=== PATIENT | male | born 1945 | race Hispanic/Latino ===

== ENCOUNTER 2020-08-29 17:41 | Inpatient (IN) | payer OTHER ==
[2020-08-29 19:57] LABS: Absolute Lymphocytes (CBC) 1.3 K/uL (0.7-4.9); Basophils % 0.1 % (0-1.3); Hematocrit 22.9 % (39.6-49.0); Lymphocytes % 14.3 % (15.3-44.8); MPV 9.7 fL (7.6-11.3); RBC Red Blood Cell Count 2.62 M/uL (4.33-5.43)
[2020-08-29 20:07] LABS: Protime INR 1.03
[2020-08-29] MEDS ORDERED: dexAMETHasone 10 MG/ML VIAL ONE (20:09)
[2020-08-29] MEDS ORDERED: LEVALBUTEROL 1.25 MG/3 ML NEB ONE (20:09)
--- NOTE | 2020-08-29 20:11 | RAD REPORT ---
EXAM DESCRIPTION: RAD - Chest Single View - 08/29/2020 8:03 pm CLINICAL HISTORY: shortness of breath Chest pain. COMPARISON: No comparisons FINDINGS: Portable technique limits examination quality. Moderate bilateral pulmonary opacities are present which may indicate pulmonary edema or viral infect ion. The heart is mildly enlarged in size. No displaced fractures.Aortic atherosclerosis. Surgical cl ips are seen upper chest.
[2020-08-29 20:31] LABS: Albumin 3.3 g/dL (3.4-5.0); Bilirubin Direct 0.2 mg/dL (0-0.2); Bilirubin Total 0.7 mg/dL (0.2-1.0); Magnesium 1.9 mg/dL (1.8-2.4); Potassium 4.2 mmol/L (3.5-5.1); Protein, Total 7.7 g/dL (6.4-8.2); Troponin (Emerg Dept Use Only) 0.02 ng/mL (0.0-0.045)
--- NOTE | 2020-08-29 20:32 | EDPHYS ---
Physician Documentation [facility] Name: Wayne Marr Age: 75 yrs Sex: Male : 1945 Arrival Date: 08/29/2020 Time: 17:42 Bed 23 Private MD: ED Physician Jero Tolentino HPI: 08/29 19:14 This 75 yrs old Male presents to ER via Ambulatory with complaints of Cough, jmm Shortness Of Breath. 19:14 The patient or guardian reports cough. Onset: The symptoms/episode began/occurred jmm gradually, 8 day(s) ago. Modifying factors: The symptoms are alleviated by nothing, the symptoms are aggravated by nothing. Associated signs and symptoms: Pertinent positives: fever. Patient states symptoms began approximately 8 days ago after playing golf. Sent by PCP due to abnormal VS> . Historical: - Allergies: 18:33 No Known Allergies; ca1 - PMHx: 18:33 Cataracts; Diabetes - NIDDM; High Cholesterol; Hypertension; ca1 - PSHx: 18:33 prostate surgery; Knee surgery; skin cancer; ca1 - Immunization history:: Pneumococcal vaccine is up to date, Flu vaccine is up to date. - Social history:: Smoking status: Patient/guardian denies using tobacco, the patient reports quitting approximately 20 years ago. ROS: 19:14 Constitutional: Positive for fever. jmm 19:14 Respiratory: Positive for cough, shortness of breath. 19:14 All other systems are negative. Exam: 19:14 Constitutional: This is a well developed, well nourished patient who is awake, alert, jmm and in no acute distress. Head/Face: atraumatic. Eyes: EOMI, no conjunctival erythema appreciated ENT: Moist Mucus Membranes Neck: Trachea midline, Supple Chest/axilla: Normal chest wall appearance and motion. Cardiovascular: Regular rate and rhythm. No edema appreciated Respiratory: Normal respirations, no respiratory distress appreciated Abdomen/GI: Non distended, soft Back: Normal ROM Skin: General appearance color normal MS/ Extremity: Moves all extremities, no obvious deformities appreciated, no edema noted to the lower extremities Neuro: Awake and alert, normal gait Psych: Behavior is normal, Mood is normal, Patient is cooperative and pleasant Vital Signs: 18:27 BP 114 / 55; Pulse 85; Resp 20 S; Temp 98.3(TE); Pulse Ox 87% on R/A; Weight 90.26 kg ca1 (R); Height 5 ft. 6 in. (167.64 cm) (R); Pain 0/10; 19:00 BP 129 / 63; Pulse 86; Resp 20; Pulse Ox 91% on 4 lpm NC; Pain 5/10; rb3 21:30 BP 114 / 62; Pulse 84; Resp 22; Pulse Ox 92% on 4 lpm NC; iw 21:45 Pulse Ox 85% on 4 lpm NC; iw 08/30 03:27 BP 126 / 82 LA Supine (auto/); Pulse 78; Resp 20; Temp 97.6(O); Pulse Ox 89% on 4 lpm ds4 NC; Pain 0/10; 08/29 18:27 Body Mass Index 32.12 (90.26 kg, 167.64 cm) ca1 08/29 21:45 pt stood up to use urinal, Sat dropped to 85% iw MDM: 19:14 Patient medically screened. nona 20:30 Data reviewed: vital signs, nurses notes. Counseling: I had a detailed discussion with nona the patient and/or guardian regarding: the historical points, exam findings, and any diagnostic results supporting the discharge/admit diagnosis, lab results, radiology results, the need for further work-up and treatment in the hospital. 20:30 ED course: I discussed the patient with Juan F Salas whom accepted admission to Dr. nona Banks service. . 08/29 19:15 Order name: Basic Metabolic Panel [facility] 08/29 19:15 Order name: CBC with Diff [facility] 08/29 19:15 Order name: LFT's [facility] 08/29 19:15 Order name: Magnesium [facility] 08/29 19:15 Order name: NT PRO-BNP [facility] 08/29 19:15 Order name: PT-INR [facility] 08/29 19:15 Order name: Troponin (emerg Dept Use Only) [facility] 08/29 19:15 Order name: Procalcitonin; Complete Time: 21:22 [facility] 08/29 19:15 Order name: Lactate [facility] 08/29 19:15 Order name: Blood Culture Adult (2) [facility] 08/29 20:04 Order name: CBC with Automated Diff; Complete Time: 20:05 [facility] 08/29 20:08 Order name: Protime (+INR); Complete Time: 20:14 [facility] 08/29 20:19 Order name: Lactate; Complete Time: 20:43 [facility] 08/29 20:31 Order name: Basic Metabolic Panel; Complete Time: 20:43 [facility] 08/29 20:31 Order name: Liver (Hepatic) Function; Complete Time: 20:43 [facility] 08/29 20:31 Order name: Troponin (Emerg Dept Use Only); Complete Time: 20:43 [facility] 08/29 20:31 Order name: NT PRO-BNP; Complete Time: 20:43 [facility] 08/29 20:31 Order name: Magnesium; Complete Time: 20:43 [facility] 08/29 21:06 Order name: CRP; Complete Time: 21:46 [facility] 08/29 21:28 Order name: COVID-19/FLU A+B; Complete Time: 21:46 [facility] 08/30 05:36 Order name: CBC with Automated Diff [facility] 08/30 05:53 Order name: Basic Metabolic Panel [facility] 08/30 05:53 Order name: Lipid Profile [facility] 08/30 06:26 Order name: C-Reactive Protein [facility] 08/30 06:26 Order name: Iron [facility] 08/30 06:26 Order name: Transferrin Sat/Iron Binding [facility] 08/30 06:26 Order name: Folic Acid, (Folate) [facility] 08/30 06:26 Order name: Vitamin B12 Level [facility] 08/29 19:15 Order name: XRAY Chest (1 view) [facility] 08/29 19:15 Order name: EKG; Complete Time: 19:16 [facility] 08/29 19:15 Order name: Cardiac monitoring; Complete Time: 19:53 [facility] 08/29 19:15 Order name: EKG - Nurse/Tech; Complete Time: 20:10 [facility] 08/29 19:15 Order name: IV Saline Lock; Complete Time: 19:53 [facility] 08/29 19:15 Order name: Labs collected and sent; Complete Time: 19:53 [facility] 08/29 19:15 Order name: O2 Per Protocol; Complete Time: 19:53 [facility] 08/29 19:15 Order name: O2 Sat Monitoring; Complete Time: 19:53 [facility] 08/29 20:12 Order name: RAD; Complete Time: 20:14 [facility] 08/29 21:21 Order name: Abdomen [facility] 08/29 21:28 Order name: CONS Physician Consult [facility] 08/30 11:46 Order name: Glucose, Ancillary Testing [facility] 08/30 18:22 Order name: Glucose, Ancillary Testing [facility] 08/30 20:59 Order name: Glucose, Ancillary Testing [facility] Administered Medications: 19:55 Drug: Xopenex (3) 1.25 mg Route: Inhalation; ca1 20:02 Drug: Decadron - Dexamethasone 10 mg Route: IVP; Site: left forearm; ca1 Disposition: 08/30 07:01 Co-signature as Attending Physician, Jero Tolentino MD I agree with the assessment and kdr plan of care. Disposition: 08/29/20 20:31 Hospitalization ordered by René Mcmanus for Observation. Preliminary diagnosis are Pneumonia, Hypoxia. - Bed requested for Intensive Care Unit. - Status is Observation. dm5 - Condition is Stable. - Problem is new. - Symptoms are unchanged. Signatures: Dispatcher [employer] [facility] Licha Shipman RN RN dm5 Isabel Khan RN RN Jero Tolentino MD MD [facility] Jordan Sam PA PA [facility] Juan F Salas PA PA [id number] Elise Covington RN RN ca1 Corrections: (The following items were deleted from the chart) 08/29 20:44 20:31 Hospitalization Ordered by René Mcmanus MD for Observation. Preliminary dw diagnosis is Pneumonia; Hypoxia. Bed requested for Telemetry/MedSurg (observation). Status is Observation. Condition is Stable. Problem is new. Symptoms are unchanged. [facility] : 21:19 Abdomen Pelvis W Con+CT.RAD.BRZ ordered. [facility] 21: 19:17 Influenza Screen (A \T\ B)+BA.LAB.BRZ ordered. [facility] 08/30 19:54 08/29 20:44 08/29/2020 20:31 Hospitalization Ordered by René Mcmanus MD for dw Observation. Preliminary diagnosis is Pneumonia; Hypoxia. Bed requested for [facility] ER HOLD. Status is Observation. Condition is Stable. Problem is new. Symptoms are unchanged. 08/30 22:37 19:54 08/29/2020 20:31 Hospitalization Ordered by René Mcmanus MD for Observation. dm5 Preliminary diagnosis is Pneumonia; Hypoxia. Bed requested for Intensive Care Unit. Status is Observation. Condition is Stable. Problem is new. Symptoms are unchanged. dw
--- NOTE | 2020-08-29 20:32 | ER ---
Nurse's Notes [facility] Name: Wayne Marr Age: 75 yrs Sex: Male : 1945 Arrival Date: 08/29/2020 Time: 17:42 Bed 23 Private MD: Diagnosis: Pneumonia;Hypoxia Presentation: 08/29 18:27 Chief complaint: Patient's son or daughter states: Son: was playing golf Wednesday, ca1 last week. with the bad foggy weather. Started feeling bad, felt achy, cough, chill. Past few days he had been coughing, checked his O2 sat and it was at 86%. Called his doctor, and when I checked again it was 84%. Denies HX of COPD. Reports SOB with exertion. Coronavirus screen: cough unrelated to allergies, Client presents with at least one sign or symptom that may indicate coronavirus-19. Standard/surgical mask placed on the client. Provider contacted for isolation considerations. Ebola Screen: Patient negative for fever greater than or equal to 101.5 degrees Fahrenheit, and additional compatible Ebola Virus Disease symptoms Patient denies exposure to infectious person. Patient denies travel to an Ebola-affected area in the 21 days before illness onset. No symptoms or risks identified at this time. Initial Sepsis Screen: Does the patient meet any 2 criteria? No. Patient's initial sepsis screen is negative. Does the patient have a suspected source of infection? No. Patient's initial sepsis screen is negative. Risk Assessment: Do you want to hurt yourself or someone else? Patient reports no desire to harm self or others. Onset of symptoms was August 29, 2020. 18:27 Method Of Arrival: Ambulatory ca1 18:27 Acuity: MAURISIO 2 ca1 Triage Assessment: 18:40 Respiratory: the patient has mild shortness of breath. rb3 Historical: - Allergies: 18:33 No Known Allergies; ca1 - PMHx: 18:33 Cataracts; Diabetes - NIDDM; High Cholesterol; Hypertension; ca1 - PSHx: 18:33 prostate surgery; Knee surgery; skin cancer; ca1 - Immunization history:: Pneumococcal vaccine is up to date, Flu vaccine is up to date. - Social history:: Smoking status: Patient/guardian denies using tobacco, the patient reports quitting approximately 20 years ago. Screenin:40 Abuse screen: Denies threats or abuse. Nutritional screening: No deficits noted. rb3 Tuberculosis screening: No symptoms or risk factors identified. Fall Risk None identified. Assessment: 18:40 General: Appears in no apparent distress. comfortable, Behavior is calm, cooperative, rb3 Denies fever. General: Reports chills for. Pain: Complains of pain in bodyaches Pain currently is 5 out of 10 on a pain scale. Pain began last Wednesday08/21/20. Neuro: Level of Consciousness is awake, alert, obeys commands, Oriented to person, place, time, situation. Cardiovascular: Patient's skin is warm and dry. Respiratory: Reports shortness of breath on exertion Airway is patent Respiratory effort is even, unlabored, Respiratory pattern is regular, symmetrical. Respiratory: Reports cough that is productive, white sputum. GI: No signs and/or symptoms were reported involving the gastrointestinal system. : No signs and/or symptoms were reported regarding the genitourinary system. 19:54 Cardiovascular: Reports shortness of breath, Denies chest pain, Rhythm is regular. iw Respiratory: Reports shortness of breath at rest on exertion cough that is productive, Breath sounds are diminished bilaterally. Derm: Skin is intact, is healthy with good turgor. Musculoskeletal: Range of motion: intact in all extremities. 21:20 Reassessment: called lab to check on COVID result, Edwardo reports it was positive, result iw is in [facility] Jordan., PA notified. 21:58 Reassessment: pt finished drinking contrast, unable to contact CT at this time , no iw answer. Vital Signs: 18:27 BP 114 / 55; Pulse 85; Resp 20 S; Temp 98.3(TE); Pulse Ox 87% on R/A; Weight 90.26 kg ca1 (R); Height 5 ft. 6 in. (167.64 cm) (R); Pain 0/10; 19:00 BP 129 / 63; Pulse 86; Resp 20; Pulse Ox 91% on 4 lpm NC; Pain 5/10; rb3 21:30 BP 114 / 62; Pulse 84; Resp 22; Pulse Ox 92% on 4 lpm NC; iw 21:45 Pulse Ox 85% on 4 lpm NC; iw 08/30 03:27 BP 126 / 82 LA Supine (auto/); Pulse 78; Resp 20; Temp 97.6(O); Pulse Ox 89% on 4 lpm ds4 NC; Pain 0/10; 08/29 18:27 Body Mass Index 32.12 (90.26 kg, 167.64 cm) ca1 08/29 21:45 pt stood up to use urinal, Sat dropped to 85% iw ED Course: 17:42 Patient arrived in ED. as 18:32 Triage completed. ca1 18:33 Arm band placed on right wrist. ca1 18:34 Jordan Sam PA is PHCP. m 18:34 Jero Tolentino MD is Attending Physician. jmm 18:40 Patient has correct armband on for positive identification. Bed in low position. Call rb3 light in reach. Side rails up X 1. Pulse ox on. NIBP on. 18:51 Moriah Navarrete, RN is Primary Nurse. rb3 19:52 Initial lab(s) drawn, by nc, sent to lab. Inserted saline lock: 20 gauge in left iw forearm, using aseptic technique. Blood collected. 20:31 René Mcmanus MD is Hospitalizing Provider. [facility] 21:29 No provider procedures requiring assistance completed. Patient admitted, IV remains in iw place. 08/30 06:39 Primary Nurse role handed off by Moriah Navarrete RN Administered Medications: 08/29 19:55 Drug: Xopenex (3) 1.25 mg Route: Inhalation; ca1 20:02 Drug: Decadron - Dexamethasone 10 mg Route: IVP; Site: left forearm; ca1 Outcome: 20:31 Decision to Hospitalize by Provider. [facility] 21:30 Admitted to ER Hold. Please see [facility] for further documentation. iw 21:30 Condition: stable 21:30 Discharge instructions given to patient, Instructed on the need for admit, Demonstrated understanding of instructions. 08/30 22:36 Admitted to ICU accompanied by nurse, room ICU 1, Report called to Annalee Joseph RN called dm5 report to ICU nurse. Annalee took the patient up. 22:37 Patient left the ED. dm5 Signatures: Licha Shipman, RN RN dm5 Jordan Sam PA PA Annette Oconnell Irene, RN RN iw Iván Batres ds4 Romana Curtis eb Elise Covington RN RN ca1 Navarrete, Moriah, RN RN rb3
[2020-08-29 21:28] LABS: SARS-COV-2 RT PCR POSITIVE (NEGATIVE)
[2020-08-29] MEDS: NA CHLORIDE 0.9% 1,000 ML IV SCH (23:35)
[2020-08-29] MEDS ORDERED: ACETAMINOPHEN 325 MG TABLET PO PRN (23:35)
[2020-08-29] MEDS: IVERMECTIN 3 MG TABLET PO ONE (23:35)
--- NOTE | 2020-08-30 02:56 | P.HP ---
Certification for Inpatient Patient admitted to: Inpatient With expected LOS: >2 Midnights Patient will require the following post-hospital care: None Practitioner: I am a practitioner with admitting privileges, knowledge of patient current condition, hospital course, and medical plan of care. Services: Services provided to patient in accordance with Admission requirements found in Title 42 Section 412.3 of the Code of Federal Regulations <Rene Salas - Last Filed: 08/30/20 02:50> Patient History Date of Service: 08/29/20 Reason for admission: COVID pneumonia, hypoxia, anemia, dehydration History of Present Illness: Mr. Marr is a 75 yo M with DM, HLD, and HTN here today for cough since 08/21/20. He reports achiness, chills, and diarrhea as well. He denies fever, nausea, and vomiting. He checked is O2 sat today and it was 86%. Sats on arrival were 87% on room air, now 91% on 4L of O2. He tested positive for COVID in the ER and CXR reveals bilateral pulmonary opacity. Of note, Hgb was 8.0 and he denies history of anemia. He reports dark black stool with diarrhea since the onset of his symptoms. His last colonoscopy was 15 years ago. He is a former smoker and quit in 1991. Na 132, K 4.2, Cl 106, HCO3 18, BUN 35, Cr 1.75, Glu 93. Hb/Hct 8/22.9, WBC 9.3, Glu 169. Home medications list reviewed: Yes - Past Medical/Surgical History Diabetic: Yes -: type 2 diabetes mellitus -: HLd -: HTN -: cataracts -: prostate surgery -: knee surgery -: skin cancer removal - Family History Mother -: Heart disease Father -: Cancer Brother -: Heart disease - Social History Smoking Status: Former smoker Counseled patient to stop smoking for: less than 10 minutes Smoking therapy provided: No Alcohol use: Yes CD- Drugs: No Caffeine use: Yes Place of Residence: Home <Rene Salas - Last Filed: 08/30/20 02:50> Date of Service: 08/29/20 <René Mcmanus - Last Filed: 09/01/20 08:09> Allergies No Known Allergies Allergy (Unverified 11/09/15 16:43) Review of Systems General: Malaise, As per HPI Eyes: Unremarkable ENT: Unremarkable Respiratory: Cough, Shortness of Breath, SOB with Excertion, As per HPI Cardiovascular: Unremarkable Gastrointestinal: Diarrhea, Melena, As per HPI Genitourinary: Unremarkable Musculoskeletal: Unremarkable Integumentary: Unremarkable Neurological: Unremarkable Lymphatics: Unremarkable <SalomeheverjackiRene - Last Filed: 08/30/20 02:50> Physical Examination - Vital Signs Temperature: 98.3 F Blood Pressure: 114/55 Pulse: 85 Respirations: 20 Pulse Ox (%): 87 - Physical Exam General: Alert, In no apparent distress, Oriented x3, Cooperative HEENT: Atraumatic, Normocephalic, PERRLA, Mucous membr. moist/pink, EOMI Neck: Supple, 2+ carotid pulse no bruit, JVD not distended, No Thyromegaly, No LAD Respiratory: Normal air movement, Rhonchi/gurgles Cardiovascular: No edema, Normal pulses, Regular rate/rhythm, Normal S1 S2, No gallops, No rubs, No murmurs Capillary refill: <2 Seconds Gastrointestinal: Normal bowel sounds, Soft and benign, Non-distended, No ascites, No tenderness, No masses, No rebound, No guarding Musculoskeletal: No clubbing, No swelling, No contractures, No erythema, No tenderness, No warmth Integumentary: No rashes, No breakdown, No significant lesion, No tenderness/swelling, No erythema, No warmth, No cyanosis Neurological: Normal speech, Sensation intact, Cranial nerves 3-12 intact, Nor mal affect Lymphatics: No axilla or inguinal lymphadenopathy Rectal: Normal, No tenderness, Other (negative guiac) - Studies Laboratory Data (last 24 hrs) 08/29/20 19:45: PT 12.1, INR 1.03 08/29/20 19:45: WBC 9.30, Hgb 8.0 L, Hct 22.9 L, Plt Count 169 08/29/20 19:45: Sodium 132 L, Potassium 4.2, BUN 35 H, Creatinine 1.75 H, Glucose 93, Magnesium 1.9, Total Bilirubin 0.7, AST 94 H, ALT 60, Alkaline Phosphatase 56 <Rene Salas - Last Filed: 08/30/20 02:50> Assessment and Plan - Problems (Diagnosis) (1) Pneumonia due to COVID-19 virus Onset Date: ~08/30/20 Current Visit: Yes Status: Acute Plan: -Vitamin D, Zinc, Vitamin C - Solumedrol - DVT prophylaxis - Ivermectin 18 mg - pepcid - melatonin - pulmonology and respiratory therapy consulted for oxygen titration (2) COVID-19 Onset Date: ~08/30/20 Current Visit: Yes Status: Acute Plan: see above for COVID pneumonia plan (3) Dehydration Onset Date: ~08/30/20 Current Visit: Yes Status: Acute Plan: -HCO3 of 18, patient with diarrhea since onset of symptoms - replete fluids and recheck BMP in the AM (4) Anemia Onset Date: ~08/30/20 Current Visit: Yes Status: Acute Plan: -Hgb of 8 today. Patient denies history of anemia. Reports dark black stools since onset of COVID symptoms. No colonoscopy in 15 years. Former smoker. - BRET completed and sample sent to lab for development - CT abdomen did not reveal any findings - Iron studies ordered Qualifiers: Anemia type: unspecified type Qualified Code(s): D64.9 - Anemia, unspecified - Plan DM, HLD, and HTN all stable at this time. Continue to monitor. Discharge Plan: Home Plan to discharge in: Greater than 2 days - Advance Directives Does patient have a Living Will: No Does patient have a Durable POA for Healthcare: No - Code Status/Comfort Care Code Status Assessed: Yes Code Status: Full Code Critical Care: No Time Spent Managing Pts Care (In Minutes): 70 <Rene Salas - Last Filed: 08/30/20 02:50> Date of Service: 08/30/20 Agree with findings as above. Patient was diagnosed with COVID-19 pneumonia. Patient on high-flow oxygen at this time. Continue with aggressive measurements. Pulmonary consultation pending. <René Mcmanus - Last Filed: 09/01/20 08:09>
[2020-08-30 05:27] LABS: Absolute Lymphocytes (CBC) 0.6 K/uL (0.7-4.9); Basophils % 0.1 % (0-1.3); Hematocrit 33.7 % (39.6-49.0); Lymphocytes % 8.3 % (15.3-44.8); MPV 9.7 fL (7.6-11.3); RBC Red Blood Cell Count 3.82 M/uL (4.33-5.43)
[2020-08-30 05:53] LABS: Potassium 4.4 mmol/L (3.5-5.1)
[2020-08-30 06:25] LABS: C-Reactive Protein 96.6 mg/L (<3.00); Ferritin 2270.1 ng/mL (26-388); Folic Acid, (Folate) 18.1 ng/mL (3.1-17.5)
--- NOTE | 2020-08-30 07:55 | EKG ---
Test Date: 2020-08-29 Test Time: 20:04:42 Foam Gun Operator: JARRETT MEASUREMENT RESULTS: Intervals: Rate: 87 MN: 148 QRSD: 92 QT: 364 QTc: 438 [place]: P: 21 MN: 148 QRS: 47 T: 25 INTERPRETIVE STATEMENTS: Normal sinus rhythm Low voltage QRS Borderline ECG No previous ECG available for comparison Electronically Signed On 08-30-20 07:49:55 PRESS MAINTAINER by Robb Perkins
[2020-08-30] MEDS: FAMOTIDINE 20 MG/2 ML VIAL IV SCH ×2 (09:32→21:28)
[2020-08-30] MEDS: ZINC SULFATE 220 MG CAP PO SCH (09:32)
[2020-08-30] MEDS: ENOXAPARIN 100 MG/ML SYR SQ SCH ×2 (09:32→21:28)
[2020-08-30] MEDS: METHYLPREDNISOLONE 40 MG INJ IV SCH ×2 (09:32→21:28)
[2020-08-30] MEDS: ASCORBIC ACID 500 MG TABLET PO SCH ×4 (09:32→21:28)
[2020-08-30] MEDS: VITAMIN D 5,000 UNIT CAP PO SCH (09:32)
[2020-08-30] MEDS: NA CHLORIDE 0.9% 1,000 ML IV SCH ×2 (09:33→12:55)
[2020-08-30] MEDS: IVERMECTIN 3 MG TABLET PO ONE (09:34)
[2020-08-30] MEDS ORDERED: ENOXAPARIN 100 MG/ML SYR SQ ONE ×2 (09:43→21:15)
[2020-08-30] MEDS ORDERED: ASCORBIC ACID 500 MG TABLET ONE ×3 (09:43→21:14)
[2020-08-30] MEDS ORDERED: METHYLPREDNISOLONE 40 MG INJ ONE ×2 (09:43→21:14)
[2020-08-30] MEDS ORDERED: NA CHLORIDE 0.9% 1,000 ML ONE (09:43)
[2020-08-30] MEDS ORDERED: ZINC SULFATE 220 MG CAP ONE (09:43)
[2020-08-30] MEDS ORDERED: FAMOTIDINE 20 MG/2 ML VIAL IV ONE ×2 (10:21→21:15)
--- NOTE | 2020-08-30 11:07 | RAD REPORT ---
EXAM DESCRIPTION: CT - Abdomen Pelvis Wo Contrast - 08/30/2020 12:43 am CLINICAL HISTORY: The patient is 75 years old and is Male; anemia with melena TECHNIQUE: Axial computed tomography images of the abdomen and pelvis without intravenous contrast. Sagittal and coronal reformatted images were created and reviewed. This CT exam was performed usi ng one or more of the following dose reduction techniques: automated exposure control, adjustment o f the mA and/or kV according to patient size, and/or use of iterative reconstruction technique. COMPARISON: No relevant prior studies available. FINDINGS: LUNG BASES: Patchy groundglass opacities are present within the visualized lung bases. PLEURAL SPACE: Trace bilateral pleural effusions are present. ABDOMEN: LIVER: The liver is fatty and enlarged. GALLBLADDER AND BILE DUCTS: No calcified stones. No ductal dilation. PANCREAS: The pancreas is atrophic with fatty infiltration. No ductal dilation. SPLEEN: Unremarkable. ADRENALS: Unremarkable. No mass. KIDNEYS AND URETERS: Bilateral nonspecific perinephric stranding is noted. There is no obstructi ng renal or ureteral calculus. STOMACH AND BOWEL: The stomach is decompressed. The proximal small bowel is also decompressed. O ral contrast is noted within the mid to distal small bowel. Oral contrast and liquid stool is noted t hroughout the colon. There is no mucosal thickening or evidence of bowel obstruction. Scattered colon ic diverticula are noted without surrounding inflammation. PELVIS: APPENDIX: The appendix is normal in caliber without surrounding inflammation. BLADDER: The bladder is significantly distended. No stones. REPRODUCTIVE: The prostate is enlarged. ABDOMEN and PELVIS: INTRAPERITONEAL SPACE: Unremarkable. No free air. No significant fluid collection. BONES/JOINTS: There are degenerative changes of the spine. SOFT TISSUES: The soft tissues are normal. VASCULATURE: Atherosclerosis of the vasculature is noted. No abdominal aortic aneurysm. LYMPH NODES: Unremarkable. No enlarged lymph nodes. IMPRESSION: 1. Liquid stool throughout the colon. Findings can be seen with a clinical history of diarrhea. No bowel obstruction. 2. Enlarged heterogeneous prostate. Correlation with PSA is recommended. 3. Moderately distended bladder. 4. Commonly reported imaging features of (COVID-19 or viral) pneumonia are present. Other processes such as influenza pneumonia and organizing pneumonia, as can be seen with drug toxicity and connecti ve tissue disease, can cause a similar imaging pattern. [id number] Electronically signed by: Chapis Diaz MD 08/30/2020 12:31 AM MECHATRONICS ENGINEER Due to temporary technical issues with the PACS/Fluency reporting system, reports are being signed by the in house radiologist without review as a courtesy to ensure prompt reporting. The interpreting r adiologist is fully responsible for the content of the report.
--- NOTE | 2020-08-30 12:42 | P.CNS ---
Date of Consult: 08/30/20 Reason for Consult: Respiratory failure Chief Complaint: COVID pneumonia, hypoxia, anemia, dehydration History of Present Illness: Patient is 75 years of age multiple medical problems admitted with cough since July 21 chills diarrhea nausea vomiting fever low saturation reported some diarrhea stools had a colonoscopy done He is currently on high-flow oxygen 65% FiO2 Allergies No Known Allergies Allergy (Unverified 11/09/15 16:43) Home Medications: Amlodipine [Norvasc*] 1 tab PO DAILY 08/30/20 Atorvastatin Calcium [Lipitor*] 1 tab PO BEDTIME 08/30/20 Carvedilol [Coreg] 12.5 mg PO BID 08/30/20 Lisinopril [Zestril] 5 mg PO DAILY 08/30/20 Tamsulosin HCl 1 tab PO DAILY 08/30/20 - Past Medical/Surgical History Diabetic: Yes -: type 2 diabetes mellitus -: HLd -: HTN -: cataracts -: prostate surgery -: knee surgery -: skin cancer removal - Family History Mother Medical History: Heart disease Father Medical History: Cancer Brother Medical History: Heart disease - Social History Alcohol use: Yes CD- Drugs: No Caffeine use: Yes Place of Residence: Home Review of Systems General: Weakness Respiratory: Shortness of Breath Physical Examination Temp Pulse Resp BP Pulse Ox 97.6 F 78 20 126/82 89 L 08/30/20 03:50 08/30/20 03:50 08/30/20 03:50 08/30/20 03:50 08/30/20 03:50 Laboratory Data (last 24 hrs) 08/29/20 19:45: PT 12.1, INR 1.03 08/29/20 19:45: WBC 9.30, Hgb 8.0 L, Hct 22.9 L, Plt Count 169 08/29/20 19:45: Sodium 132 L, Potassium 4.2, BUN 35 H, Creatinine 1.75 H, Glucose 93, Magnesium 1.9, Total Bilirubin 0.7, AST 94 H, ALT 60, Alkaline Phosphatase 56 - Problems (1) Pneumonia due to COVID-19 virus Onset Date: ~08/30/20 Current Visit: Yes Status: Acute Plan: Patient is 75 years of age admitted with pneumonia due to heath virus chest x- rays consistent with heath virus labs reviewed mildly anemic continue with present treatment no change hemoglobin stable continue to wean done on oxygen hemodynamically stable
[2020-08-30] MEDS ORDERED: INSULIN -REGULAR HUMAN 50 UNIT/0.5 ML ML ONE (12:46)
[2020-08-30] MEDS ORDERED: GLUCAGON 1 MG/VIAL IM PRN (21:27)
[2020-08-30] MEDS ORDERED: D50W 25 GM/50 ML SYRINGE IV PRN (21:27)
[2020-08-30] MEDS: MELATONIN 5 MG TABLET PO SCH (22:52)
[2020-08-30] MEDS: INSULIN -REGULAR HUMAN 50 UNIT/0.5 ML ML SQ SCH (22:52)
[2020-08-31 06:11] LABS: C-Reactive Protein 74.3 mg/L (<3.00); Potassium 4.3 mmol/L (3.5-5.1)
[2020-08-31] MEDS ORDERED: INSULIN -REGULAR HUMAN 50 UNIT/0.5 ML ML SQ SCH (07:30)
[2020-08-31] MEDS: INSULIN -REGULAR HUMAN 50 UNIT/0.5 ML ML SQ SCH ×4 (07:30→21:00)
[2020-08-31] MEDS: ENOXAPARIN 100 MG/ML SYR SQ SCH ×2 (08:53→20:45)
[2020-08-31] MEDS: FAMOTIDINE 20 MG/2 ML VIAL IV SCH ×2 (08:54→20:46)
[2020-08-31] MEDS: VITAMIN D 5,000 UNIT CAP PO SCH (08:55)
[2020-08-31] MEDS: METHYLPREDNISOLONE 40 MG INJ IV SCH ×2 (08:55→20:46)
[2020-08-31] MEDS: ASCORBIC ACID 500 MG TABLET PO SCH ×3 (08:55→20:45)
[2020-08-31] MEDS: ZINC SULFATE 220 MG CAP PO SCH (08:56)
[2020-08-31] MEDS ORDERED: IVERMECTIN 3 MG TABLET PO ONE (09:00)
[2020-08-31] MEDS: MELATONIN 5 MG TABLET PO SCH (20:45)
[2020-09-01 05:56] LABS: Absolute Lymphocytes (CBC) 0.5 K/uL (0.7-4.9); Hematocrit 34.1 % (39.6-49.0); Lymphocytes % 3.4 % (15.3-44.8); RBC Red Blood Cell Count 3.91 M/uL (4.33-5.43)
[2020-09-01 06:11] LABS: Potassium 4.3 mmol/L (3.5-5.1)
[2020-09-01 06:16] LABS: Protime INR 1.06
[2020-09-01 06:24] LABS: Albumin 2.9 g/dL (3.4-5.0); Bilirubin Total 0.8 mg/dL (0.2-1.0); C-Reactive Protein 86.4 mg/L (<3.00); Magnesium 2.7 mg/dL (1.8-2.4); Phosphorus 2.8 mg/dL (2.5-4.9); Potassium 4.2 mmol/L (3.5-5.1); Protein, Total 7.2 g/dL (6.4-8.2)
[2020-09-01 06:50] LABS: Ferritin 2382.7 ng/mL (26-388)
[2020-09-01 07:50] LABS: Blood Morphology Comment NOT SEEN (NOT SEEN); Platelet Estimate ADEQ
--- NOTE | 2020-09-01 08:27 | P.PN ---
Subjective Date of Service: 08/30/20 Patient still tachypneic on any kind exertion. Patient gets short of breath at times. At this time will continue with IV steroids. Consider Remdesivir. On Ivermectin as well. Review of Systems 10-point ROS is otherwise unremarkable Physical Examination - Vital Signs Temperature: 97 F Blood Pressure: 116/49 Pulse: 66 Respirations: 33 Pulse Ox (%): 84 - Physical Exam General: Alert, In no apparent distress, Oriented x3 Respiratory: Diminished, Crackles/rales Cardiovascular: Regular rate/rhythm, Normal S1 S2, No murmurs Gastrointestinal: Normal bowel sounds, Soft and benign, Non-distended, No t enderness Musculoskeletal: No clubbing, No swelling, No tenderness Neurological: Sensation intact, Cranial nerves 3-12 intact - Studies Medications List Reviewed: Yes Assessment & Plan - Problems (Diagnosis) (1) Pneumonia due to COVID-19 virus Onset Date: ~08/30/20 Current Visit: Yes Status: Acute (2) DM2 (diabetes mellitus, type 2) Current Visit: Yes Status: Acute Qualifiers: Diabetes mellitus prison insulin use: without intermediate manager use (3) HTN (hypertension) Current Visit: Yes Status: Acute Qualifiers: Hypertension type: essential hypertension Qualified Code(s): I10 - Essential (primary) hypertension - Plan 1. Continue with IV steroids 2. O2 per protocol 3. Repeat chest x-ray if symptoms are not improving 4. O2 per protocol 5. Pulmonary consultation appreciated 6. Continue with albuterol inhaler therapy; 7. Monitor inflammatory markers 8. GI and DVT prophylaxis Discharge Plan: Home Plan to discharge in: Greater than 2 days - Advance Directives Does patient have a Living Will: No Does patient have a Durable POA for Healthcare: No - Code Status/Comfort Care Code Status: Full Code Critical Care: No Time Spent Managing PTS Care (In Minutes): 35
[2020-09-01] MEDS: ASCORBIC ACID 500 MG TABLET PO SCH ×5 (09:00→20:41)
[2020-09-01] MEDS: METHYLPREDNISOLONE 40 MG INJ IV SCH (09:19)
[2020-09-01] MEDS: VITAMIN D 5,000 UNIT CAP PO SCH (09:20)
[2020-09-01] MEDS: ZINC SULFATE 220 MG CAP PO SCH (09:20)
[2020-09-01] MEDS: FAMOTIDINE 20 MG/2 ML VIAL IV SCH (09:20)
[2020-09-01] MEDS: ENOXAPARIN 100 MG/ML SYR SQ SCH ×2 (09:20→20:41)
[2020-09-01] MEDS: INSULIN -REGULAR HUMAN 50 UNIT/0.5 ML ML SQ SCH ×4 (09:21→21:00)
[2020-09-01] MEDS ORDERED: clonazePAM 0.5 MG TAB PO PRN (10:19)
--- NOTE | 2020-09-01 10:22 | P.PN ---
Subjective Date of Service: 09/01/20 Chief Complaint: Respiratory failure Subjective: Improving (Patient is still continues to be hypoxic require high concentrations of oxygen) Review of Systems is unable to be obtained Physical Examination - Vital Signs Temperature: 97 F Blood Pressure: 116/49 Pulse: 66 Respirations: 33 Pulse Ox (%): 84 - Physical Exam General: Alert Respiratory: Clear to auscultation bilaterally Cardiovascular: Normal S1 S2 - Studies Medications List Reviewed: Yes Assessment & Plan - Problems (Diagnosis) (1) Pneumonia due to COVID-19 virus Onset Date: ~08/30/20 Current Visit: Yes Status: Acute Plan: Respiratory failure still requiring high concentrations of oxygen chest x-ray shows significant bilateral changes increase Solu-Medrol inflammatory markers are very elevated/continue with present treatment BiPAP when in supine position patient has difficulty lying in prone position saturations have improved in prone position
[2020-09-01] MEDS: METHYLPREDNISOLONE 125 MG INJ IV SCH ×2 (14:53→20:43)
--- NOTE | 2020-09-01 15:58 | P.PN ---
Date of Service: 08/31/20 Subjective Patient remains hypoxic. Oxygen requirements have increased to 100% FiO2. Review of Systems 10-point ROS is otherwise unremarkable Physical Examination - Vital Signs Reviewed - Physical Exam General: Alert, In no apparent distress, Oriented x3 Respiratory: Diminished, Crackles/rales Cardiovascular: Regular rate/rhythm, Normal S1 S2, No murmurs Gastrointestinal: Normal bowel sounds, Soft and benign, Non-distended, No tenderness Musculoskeletal: No clubbing, No swelling, No tenderness Neurological: Sensation intact, Cranial nerves 3-12 intact Assessment & Plan - Problems (Diagnosis) (1) Pneumonia due to COVID-19 virus Onset Date: ~08/30/20 Current Visit: Yes Status: Acute (2) DM2 (diabetes mellitus, type 2) Current Visit: Yes Status: Acute 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 Continue with IV steroids 2. O2 per protocol 3. Repeat chest x-ray if symptoms are not improving 4. Strict blood pressure and blood sugar control 5. Pulmonary consultation appreciated 6. Continue with albuterol inhaler therapy; 7. Monitor inflammatory markers 8. GI and DVT prophylaxis Discharge Plan: Home Plan to discharge in: Greater than 2 days - Advance Directives Does patient have a Living Will: No Does patient have a Durable POA for Healthcare: No - Code Status/Comfort Care Code Status: Full Code Critical Care: yes Time Spent Managing PTS Care (In Minutes): 35
--- NOTE | 2020-09-01 16:00 | P.PN ---
Date of Service: 09/01/20 Subjective Patient with no new changes. Patient remains hypoxic at this time. Continues on high-flow oxygen at FiO2 of 100% Review of Systems 10-point ROS is otherwise unremarkable Physical Examination - Vital Signs Reviewed - Physical Exam General: Alert, In no apparent distress, Oriented x3 Respiratory: Diminished, Crackles/rales Cardiovascular: Regular rate/rhythm, Normal S1 S2, No murmurs Gastrointestinal: Normal bowel sounds, Soft and benign, Non-distended, No tenderness Musculoskeletal: No clubbing, No swelling, No tenderness Neurological: Sensation intact, Cranial nerves 3-12 intact Assessment & Plan - Problems (Diagnosis) (1) Pneumonia due to COVID-19 virus Onset Date: ~08/30/20 Current Visit: Yes Status: Acute (2) DM2 (diabetes mellitus, type 2) Current Visit: Yes Status: Acute 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 Continue with IV steroids 2. Monitor Is & Os closely 3. Continue high-flow oxygen 4. Strict blood pressure and blood sugar control 5. Pulmonary consultation appreciated 6. Continue with albuterol inhaler therapy; 7. Monitor inflammatory markers 8. GI and DVT prophylaxis Discharge Plan: Home Plan to discharge in: Greater than 2 days - Advance Directives Does patient have a Living Will: No Does patient have a Durable POA for Healthcare: No - Code Status/Comfort Care Code Status: Full Code Critical Care: yes Time Spent Managing PTS Care (In Minutes): 35
[2020-09-01] MEDS: FENTANYL CITR 100 MCG/2 ML IV PRN ×2 (17:25→23:08)
[2020-09-01] MEDS: FAMOTIDINE 20 MG TAB PO SCH (20:41)
[2020-09-01] MEDS: MELATONIN 5 MG TABLET PO SCH (20:41)
[2020-09-02 05:16] LABS: Absolute Lymphocytes (CBC) 0.4 K/uL (0.7-4.9); Hematocrit 31.7 % (39.6-49.0); Lymphocytes % 2.9 % (15.3-44.8); MPV 8.5 fL (7.6-11.3)
[2020-09-02] MEDS: FENTANYL CITR 100 MCG/2 ML IV PRN (05:30)
[2020-09-02 06:10] LABS: ALT/SGPT 68 U/L (12-78); AST/SGOT 99 U/L (15-37); Albumin 2.9 g/dL (3.4-5.0); Alkaline Phosphatase 83 U/L (45-117); BUN Blood Urea Nitrogen 30 mg/dL (7-18); Bicarbonate 27 mmol/L (21-32); Bilirubin Total 1.1 mg/dL (0.2-1.0); Ferritin 2666.6 ng/mL (26-388); Glucose Level 243 mg/dL (74-106); Magnesium 3.4 mg/dL (1.8-2.4); NT PRO-BNP 1084 pg/mL (<450); Phosphorus 3.1 mg/dL (2.5-4.9); Potassium 4.4 mmol/L (3.5-5.1); Protein, Total 7.1 g/dL (6.4-8.2); Sodium Level 139 mmol/L (136-145)
[2020-09-02] MEDS: FAMOTIDINE 20 MG TAB PO SCH ×2 (08:12→20:30)
[2020-09-02] MEDS: ENOXAPARIN 100 MG/ML SYR SQ SCH (08:12)
[2020-09-02] MEDS: VITAMIN D 5,000 UNIT CAP PO SCH (08:12)
[2020-09-02] MEDS: ASCORBIC ACID 500 MG TABLET PO SCH ×4 (08:12→20:30)
[2020-09-02] MEDS: ZINC SULFATE 220 MG CAP PO SCH (08:12)
[2020-09-02] MEDS: METHYLPREDNISOLONE 125 MG INJ IV SCH ×3 (08:12→20:30)
[2020-09-02] MEDS: INSULIN -REGULAR HUMAN 50 UNIT/0.5 ML ML SQ SCH ×4 (08:13→21:37)
[2020-09-02] MEDS ORDERED: Remdesivir 200 MG in NA CHLORIDE 0.9% 250 ML IV ONE (10:30)
[2020-09-02 11:05] LABS: Arterial Blood Carboxyhemoglob 0.7 % (0-1.5); Blood Gas Oxyhemoglobin 95.8 % (94-97); Blood O2 Saturation 97.6 % (92-98.5)
[2020-09-02] MEDS ORDERED: FUROSEMIDE 20 MG/ 2ML VIAL IV ONE (12:24)
--- NOTE | 2020-09-02 12:25 | P.PN ---
Subjective Date of Service: 09/02/20 Chief Complaint: Respiratory failure Subjective: Improving (Patient is feeling better although still requiring high concentrations of oxygen) Review of Systems General: Weakness Respiratory: Shortness of Breath Physical Examination - Vital Signs Temperature: 97 F Blood Pressure: 126/56 Pulse: 61 Respirations: 24 Pulse Ox (%): 93 - Studies Medications List Reviewed: Yes Assessment & Plan - Problems (Diagnosis) (1) Pneumonia due to COVID-19 virus Onset Date: ~08/30/20 Current Visit: Yes Status: Acute Plan: Respiratory failure no change continue to titrate oxygen concentration down blood gases satisfactory the doses of steroids change to p.o. Eliquis 1 dose of Lasix
--- NOTE | 2020-09-02 12:32 | P.PN ---
Subjective Date of Service: 09/02/20 Chief Complaint: Respiratory failure Subjective: Improving Physical Examination - Vital Signs Temperature: 97 F Blood Pressure: 126/56 Pulse: 61 Respirations: 24 Pulse Ox (%): 93 - Studies Medications List Reviewed: Yes Assessment & Plan - Problems (Diagnosis) (1) Pneumonia due to COVID-19 virus Onset Date: ~08/30/20 Current Visit: Yes Status: Acute Plan: Respiratory failure still requiring high concentrations of oxygen chest x-ray shows significant bilateral changes increase Solu-Medrol inflammatory markers are very elevated/continue with present treatment BiPAP when in supine position patient has difficulty lying in prone position saturations have improved in prone position
--- NOTE | 2020-09-02 14:29 | RAD REPORT ---
EXAM DESCRIPTION: RAD - Chest Single View - 09/02/2020 2:02 pm CLINICAL HISTORY: COVID PNA COMPARISON: Portable August 21 TECHNIQUE: AP portable chest image was obtained 09/02/2020 2:02 pm . FINDINGS: Lung volumes are very low which accentuates the bilateral interstitial and alveolar opacif ication pattern. Mid and lower left lung field show improvement from August 29. Right lung field is not substantially different. No worsening of lung parenchymal disease suspected. Numerous surgical clips overlie the right axilla and right chest. Heart and vasculature are normal. N o measurable pleural effusion and no pneumothorax. No acute bony abnormality seen. No acute aortic fi ndings suspected. IMPRESSION: Bilateral COVID-19 pneumonia findings are present with patient showing improvement in th e left lung field since August 29.
--- NOTE | 2020-09-02 15:49 | P.PN ---
Subjective Date of Service: 09/02/20 Chief Complaint: Respiratory failure Subjective: Other (Currently on high-flow at 95%) Physical Examination - Vital Signs Temperature: 97 F Blood Pressure: 134/59 Pulse: 83 Respirations: 19 Pulse Ox (%): 87 - Physical Exam General: Alert, Cooperative HEENT: Atraumatic Neck: Supple Respiratory: Other (On high-flow oxygen at 95%. No distress noted) Cardiovascular: Normal pulses, Regular rate/rhythm Gastrointestinal: No guarding Neurological: Normal speech, Normal strength at 5/5 x4 extr, Normal tone, Normal affect - Studies Medications List Reviewed: Yes Assessment & Plan Discharge Plan: Home Plan to discharge in: Greater than 2 days Physician Review Additional Text: Impression: Shortness of breath secondary to acute respiratory failure with hypoxia related to bilateral COVID 19 pneumonia HTN DM Type 2 with hyperglycemia Hyperlipidemia BPH Plan: Shortness of breath secondary to acute respiratory failure with hypoxia related to bilateral COVID 19 pneumonia: Continue to wean down off high-flow. Respiratory to further monitor and adjust. Spoke with pulmonology. Continue with aggressive IV steroids. Recommend starting Remdesivir. Spoke with patient about details of medication. He agrees with plan to start. Continue with supplementation. Continue Eliquis for DVT prophylaxis. Encourage ambulation. Encourage incentive spirometer. Encourage protein. Continue to monitor closely. Anticipate improvement over the next 72 hr. HTN: Restart Norvasc. Continue to hold carvedilol and lisinopril. Will continue to adjust medication. DM Type 2 with hyperglycemia: Will check A1c tomorrow. Continue Accu-Cheks. Will start basal insulin-Lantus. Hyperlipidemia: Restart home medication Lipitor BPH: Restart home medication Flomax Time Spent Managing Pts Care (In Minutes): 55
[2020-09-02] MEDS: APIXABAN 5 MG TABLET PO SCH (20:29)
[2020-09-02] MEDS: MELATONIN 5 MG TABLET PO SCH (20:30)
[2020-09-02] MEDS: ATORVASTATIN 20 MG TAB PO SCH (20:30)
[2020-09-02] MEDS ORDERED: INSULIN GLARGINE 100 UNITS/ML SQ SCH (21:00)
[2020-09-02] MEDS ORDERED: carvediloL 12.5 MG TAB PO SCH (21:00)
[2020-09-03 05:51] LABS: Albumin 2.9 g/dL (3.4-5.0); Bilirubin Direct 0.4 mg/dL (0-0.2); Bilirubin Total 0.9 mg/dL (0.2-1.0); C-Reactive Protein 43.2 mg/L (<3.00); Ferritin 2751.5 ng/mL (26-388)
[2020-09-03] MEDS ORDERED: FUROSEMIDE 20 MG/ 2ML VIAL IV ONE (08:11)
--- NOTE | 2020-09-03 08:13 | P.PN ---
Subjective Date of Service: 09/03/20 Chief Complaint: Respiratory failure Subjective: Improving (Patient is feeling better still has significant desaturation ferritin levels very elevated) Review of Systems Respiratory: Cough, Shortness of Breath Physical Examination - Vital Signs Temperature: 97.8 F Blood Pressure: 125/46 Pulse: 53 Respirations: 19 Pulse Ox (%): 96 - Studies Medications List Reviewed: Yes Assessment & Plan - Problems (Diagnosis) (1) Pneumonia due to COVID-19 virus Onset Date: ~08/30/20 Current Visit: Yes Status: Acute Plan: Respiratory failure acquiring BiPAP significant desat ferritin level significantly elevated reduce dose of Solu-Medrol is really made no difference to his ferritin had small dose of Lasix continue with prone position he vaginal we and metformin for blood sugar control
[2020-09-03] MEDS: VITAMIN D 5,000 UNIT CAP PO SCH (08:33)
[2020-09-03] MEDS: INSULIN -REGULAR HUMAN 50 UNIT/0.5 ML ML SQ SCH ×4 (08:33→20:36)
[2020-09-03] MEDS: AMLODIPINE 5 MG TAB PO SCH (08:34)
[2020-09-03] MEDS: ZINC SULFATE 220 MG CAP PO SCH (08:34)
[2020-09-03] MEDS: ASCORBIC ACID 500 MG TABLET PO SCH ×4 (08:34→20:37)
[2020-09-03] MEDS: FAMOTIDINE 20 MG TAB PO SCH ×2 (08:34→20:35)
[2020-09-03] MEDS: APIXABAN 5 MG TABLET PO SCH ×2 (08:34→20:35)
[2020-09-03] MEDS: TAMSULOSIN 0.4 MG SR CAP PO SCH (08:34)
[2020-09-03] MEDS: METHYLPREDNISOLONE 125 MG INJ IV SCH ×3 (08:35→20:34)
[2020-09-03] MEDS: SITAGLIPTIN PHOS 100 MG TAB PO SCH (08:36)
[2020-09-03] MEDS: METFORMIN HCL 500 MG TAB PO SCH ×2 (08:36→16:51)
[2020-09-03] MEDS: Remdesivir 100 MG in NA CHLORIDE 0.9% 250 ML IV SCH (09:14)
--- NOTE | 2020-09-03 12:20 | P.PN ---
Subjective Date of Service: 09/03/20 Chief Complaint: Respiratory failure Subjective: Other (remains on BIPAP. Reports slight improvement.) Physical Examination - Vital Signs Temperature: 97.8 F Blood Pressure: 112/74 Pulse: 90 Respirations: 23 Pulse Ox (%): 91 - Physical Exam General: Alert HEENT: Atraumatic Neck: Supple Respiratory: Other (on BIPAP on 85%) Cardiovascular: Normal pulses, Regular rate/rhythm Gastrointestinal: Normal bowel sounds Neurological: Normal speech, Normal strength at 5/5 x4 extr, Normal tone, Normal affect - Studies Medications List Reviewed: Yes Assessment & Plan Plan to discharge in: Greater than 2 days Physician Review Additional Text: Impression: Shortness of breath secondary to acute respiratory failure with hypoxia related to bilateral COVID 19 pneumonia HTN DM Type 2 with hyperglycemia Hyperlipidemia BPH Plan: Shortness of breath secondary to acute respiratory failure with hypoxia related to bilateral COVID 19 pneumonia: on BIPAP 85%. Remdesivir started yesterday. Continue to wean down off to NC. Spoke with pulmonology. Continue with aggressive IV steroids. Continue Eliquis for DVT prophylaxis. Encourage ambulation. Encourage incentive spirometerif able. Encourage proning. Continue to monitor lab closely. Respiratory continues to wean down oxygen requirement. Anticipate improvement over the next 72 hr. HTN: Norvasc restarted. Continue to hold carvedilol and lisinopril. Will continue to adjust medication. DM Type 2 with hyperglycemia: Hemoglobin A1c 7.1. Lantus initiated for better diabetic control. Continue to adjust. Hyperlipidemia: Continue Lipitor BPH: Continue Flomax Time Spent Managing Pts Care (In Minutes): 55
[2020-09-03] MEDS: ATORVASTATIN 20 MG TAB PO SCH (20:35)
[2020-09-03] MEDS: MELATONIN 5 MG TABLET PO SCH (20:35)
[2020-09-03] MEDS ORDERED: INSULIN GLARGINE 100 UNITS/ML SQ SCH (21:00)
[2020-09-04 05:54] LABS: Albumin 3.2 g/dL (3.4-5.0); Bilirubin Direct 0.3 mg/dL (0-0.2); C-Reactive Protein 25.2 mg/L (<3.00); Ferritin 2421.1 ng/mL (26-388); Protein, Total 7.1 g/dL (6.4-8.2)
[2020-09-04] MEDS: ZINC SULFATE 220 MG CAP PO SCH (08:14)
[2020-09-04] MEDS: TAMSULOSIN 0.4 MG SR CAP PO SCH (08:14)
[2020-09-04] MEDS: SITAGLIPTIN PHOS 100 MG TAB PO SCH (08:14)
[2020-09-04] MEDS: AMLODIPINE 5 MG TAB PO SCH (08:15)
[2020-09-04] MEDS: METHYLPREDNISOLONE 125 MG INJ IV SCH ×3 (08:15→21:09)
[2020-09-04] MEDS: APIXABAN 5 MG TABLET PO SCH ×2 (08:16→21:09)
[2020-09-04] MEDS: ASCORBIC ACID 500 MG TABLET PO SCH ×4 (08:16→21:09)
[2020-09-04] MEDS: VITAMIN D 5,000 UNIT CAP PO SCH (08:16)
[2020-09-04] MEDS: FAMOTIDINE 20 MG TAB PO SCH ×2 (08:16→21:09)
[2020-09-04] MEDS: METFORMIN HCL 500 MG TAB PO SCH ×2 (08:16→17:11)
[2020-09-04] MEDS: INSULIN -REGULAR HUMAN 50 UNIT/0.5 ML ML SQ SCH ×4 (08:18→21:10)
--- NOTE | 2020-09-04 08:47 | P.PN ---
Subjective Date of Service: 09/04/20 Chief Complaint: Respiratory failure Subjective: Improving (Patient is improving oxygen requirements and decreasing however he experiences significant desat and I done in the morning) Review of Systems General: Weakness Respiratory: Shortness of Breath Physical Examination - Vital Signs Temperature: 97.2 F Blood Pressure: 122/57 Pulse: 81 Respirations: 22 Pulse Ox (%): 94 - Studies Microbiology Data (last 24 hrs): 08/29/20 19:45 Blood - Blood Aerobic Blood Culture - Final No growth in 5 days. 08/29/20 19:45 Blood - Blood Anaerobic Blood Culture - Final No growth in 5 days. Medications List Reviewed: Yes Assessment & Plan - Problems (Diagnosis) (1) Pneumonia due to COVID-19 virus Onset Date: ~08/30/20 Current Visit: Yes Status: Acute Plan: Respiratory failure oxygen requirements are declining still requiring high concentrations of oxygen significant desats recheck labs vital signs are stable continue with present medications continue with BiPAP and high-flow oxygen blood sugars still very elevated
[2020-09-04] MEDS: Remdesivir 100 MG in NA CHLORIDE 0.9% 250 ML IV SCH (09:25)
--- NOTE | 2020-09-04 09:49 | P.PN ---
Subjective Date of Service: 09/04/20 Chief Complaint: Respiratory failure Subjective: Other (Slow improvement noted) Physical Examination - Vital Signs Temperature: 97.2 F Blood Pressure: 136/70 Pulse: 99 Respirations: 23 Pulse Ox (%): 84 - Physical Exam General: Alert, Cooperative HEENT: Atraumatic Neck: Supple Respiratory: Other (Patient currently on BiPAP at 75% Fi02.) Cardiovascular: Normal pulses Neurological: Normal speech, Normal strength at 5/5 x4 extr, Normal tone, Normal affect - Studies Microbiology Data (last 24 hrs): 08/29/20 19:45 Blood - Blood Aerobic Blood Culture - Final No growth in 5 days. 08/29/20 19:45 Blood - Blood Anaerobic Blood Culture - Final No growth in 5 days. Medications List Reviewed: Yes Assessment & Plan Discharge Plan: Home Plan to discharge in: 72 Hours Physician Review Additional Text: Impression: Shortness of breath secondary to acute respiratory failure with hypoxia related to bilateral COVID 19 pneumonia HTN DM Type 2 with hyperglycemia Hyperlipidemia BPH Plan: Shortness of breath secondary to acute respiratory failure with hypoxia related to bilateral COVID 19 pneumonia: Slow improvement noted. Now requiring last on BiPAP at 75%. Continue to wean down to nasal cannula. Case discussed with pulmonology. CRP and ferritin level improving. Continue with IV steroids, supplementation and Remdesivir. Continue Eliquis for DVT prophylaxis. Encourage ambulation. Encourage incentive spirometer. Encourage proning. Continue to monitor lab closely. Respiratory continues to wean down oxygen requirement. Anticipate improvement over the next 72 hr. HTN: Norvasc restarted. Continue to hold carvedilol and lisinopril. Will continue to adjust medication. DM Type 2 with hyperglycemia: Hemoglobin A1c 7.1. Continue to adjust Lantus for better diabetic control. Accucheck in place. Hyperlipidemia: Continue Lipitor BPH: Continue Flomax Time Spent Managing Pts Care (In Minutes): 55
[2020-09-04] MEDS ORDERED: D50W 25 GM/50 ML VIAL IV PRN (14:45)
[2020-09-04] MEDS: MELATONIN 5 MG TABLET PO SCH (21:09)
[2020-09-04] MEDS: ATORVASTATIN 20 MG TAB PO SCH (21:09)
[2020-09-04] MEDS: INSULIN GLARGINE 100 UNITS/ML SQ SCH (21:10)
[2020-09-05 05:51] LABS: Albumin 3.2 g/dL (3.4-5.0); Bilirubin Direct 0.3 mg/dL (0-0.2); Bilirubin Total 0.9 mg/dL (0.2-1.0); C-Reactive Protein 21.2 mg/L (<3.00)
[2020-09-05] MEDS: INSULIN -REGULAR HUMAN 50 UNIT/0.5 ML ML SQ SCH ×4 (07:30→20:15)
[2020-09-05] MEDS: METFORMIN HCL 500 MG TAB PO SCH ×2 (08:05→16:24)
[2020-09-05] MEDS: APIXABAN 5 MG TABLET PO SCH ×2 (08:05→19:52)
[2020-09-05] MEDS: ASCORBIC ACID 500 MG TABLET PO SCH ×4 (08:06→19:53)
[2020-09-05] MEDS: FAMOTIDINE 20 MG TAB PO SCH ×2 (08:06→19:53)
[2020-09-05] MEDS: SITAGLIPTIN PHOS 100 MG TAB PO SCH (08:06)
[2020-09-05] MEDS: VITAMIN D 5,000 UNIT CAP PO SCH (08:06)
[2020-09-05] MEDS: ZINC SULFATE 220 MG CAP PO SCH (08:07)
[2020-09-05] MEDS: METHYLPREDNISOLONE 125 MG INJ IV SCH ×3 (08:07→19:53)
[2020-09-05] MEDS: TAMSULOSIN 0.4 MG SR CAP PO SCH (08:07)
--- NOTE | 2020-09-05 08:25 | P.PN ---
Subjective Date of Service: 09/05/20 Chief Complaint: Respiratory failure Subjective: Other (Patient is slowly improving. Patient currently on BiPAP at 75% FiO2.) Physical Examination - Vital Signs Temperature: 97.0 F Blood Pressure: 143/65 Pulse: 76 Respirations: 22 Pulse Ox (%): 88 - Studies Medications List Reviewed: Yes Assessment & Plan Discharge Plan: Home Plan to discharge in: 48 Hours Physician Review Additional Text: Physical exam: Patient alert, cooperative. No significant distress noted. Heart: normal rythym Lungs: currently on BiPAP at 75% Fi02. GI: Soft, nondistended. Extremities: Patient moving appropriately without difficulty. No swelling noted. Impression: Shortness of breath secondary to acute respiratory failure with hypoxia related to bilateral COVID 19 pneumonia HTN DM Type 2 with hyperglycemia Hyperlipidemia BPH Plan: Shortness of breath secondary to acute respiratory failure with hypoxia related to bilateral COVID 19 pneumonia: Patient continues to show slow improvement. Patient remains on BiPAP at 75%. Anticipate respiratory to wean down to nasal cannula soon. Case discussed with pulmonology. CRP and ferritin level improving. Continue with IV steroids, supplementation and Remdesivir. Continue Eliquis for DVT prophylaxis. Encourage ambulation. Encourage incentive spirometer. Encourage proning. Continue to monitor lab closely. Patient motivated to ambulate. . Anticipate improvement over the next 48 hr. HTN: Continue Norvasc. Blood pressure slightly elevated. Will add low-dose lisinopril. Continue to hold carvedilol. Will make further adjustments in medication. DM Type 2 with hyperglycemia: Hemoglobin A1c 7.1. Blood sugars better controlled with adjustments and Lantus. Continue to adjust Lantus for better diabetic control. Accucheck in place. Hyperlipidemia: Continue Lipitor BPH: Continue Flomax Time Spent Managing Pts Care (In Minutes): 55
[2020-09-05] MEDS: Remdesivir 100 MG in NA CHLORIDE 0.9% 250 ML IV SCH (08:37)
[2020-09-05] MEDS: AMLODIPINE 5 MG TAB PO SCH (09:00)
[2020-09-05] MEDS: lisinopriL 5 MG TAB PO SCH (09:00)
[2020-09-05] MEDS: FUROSEMIDE 20 MG/ 2ML VIAL IV SCH (13:21)
--- NOTE | 2020-09-05 13:24 | P.PN ---
Subjective Date of Service: 09/05/20 Chief Complaint: Respiratory failure Patient is still a significant desaturation although oxygen requirements have declined Review of Systems General: Weakness Respiratory: Shortness of Breath Physical Examination - Vital Signs Temperature: 96.1 F Blood Pressure: 138/67 Pulse: 100 Respirations: 22 Pulse Ox (%): 93 - Studies Medications List Reviewed: Yes Assessment & Plan - Problems (Diagnosis) (1) Pneumonia due to COVID-19 virus Onset Date: ~08/30/20 Current Visit: Yes Status: Acute Plan: Respiratory failure still requiring BiPAP trial of IV Lasix live ordered some labs ferritin levels are declining continue with present treatment continue to wean patient has a 2 doses of ivermectin oxygen requirements are declining
[2020-09-05 14:21] LABS: Potassium 4.2 mmol/L (3.5-5.1)
[2020-09-05 14:27] LABS: Hematocrit 35.6 % (39.6-49.0); MPV 8.6 fL (7.6-11.3); RBC Red Blood Cell Count 4.02 M/uL (4.33-5.43)
[2020-09-05] MEDS: ATORVASTATIN 20 MG TAB PO SCH (19:52)
[2020-09-05] MEDS: MELATONIN 5 MG TABLET PO SCH (19:53)
[2020-09-05] MEDS: INSULIN GLARGINE 100 UNITS/ML SQ SCH (20:14)
[2020-09-06 05:45] LABS: Bilirubin Direct 0.3 mg/dL (0-0.2); Bilirubin Total 0.9 mg/dL (0.2-1.0); Ferritin 1527.3 ng/mL (26-388); Protein, Total 6.7 g/dL (6.4-8.2)
[2020-09-06] MEDS: INSULIN -REGULAR HUMAN 50 UNIT/0.5 ML ML SQ SCH ×4 (07:30→19:58)
[2020-09-06] MEDS: ZINC SULFATE 220 MG CAP PO SCH (08:16)
[2020-09-06] MEDS: METFORMIN HCL 500 MG TAB PO SCH ×2 (08:16→17:05)
[2020-09-06] MEDS: FAMOTIDINE 20 MG TAB PO SCH ×2 (08:16→19:57)
[2020-09-06] MEDS: APIXABAN 5 MG TABLET PO SCH ×2 (08:16→19:58)
[2020-09-06] MEDS: VITAMIN D 5,000 UNIT CAP PO SCH (08:17)
[2020-09-06] MEDS: ASCORBIC ACID 500 MG TABLET PO SCH ×4 (08:17→19:57)
[2020-09-06] MEDS: lisinopriL 5 MG TAB PO SCH (08:17)
[2020-09-06] MEDS: AMLODIPINE 5 MG TAB PO SCH (08:17)
[2020-09-06] MEDS: TAMSULOSIN 0.4 MG SR CAP PO SCH (08:18)
[2020-09-06] MEDS: SITAGLIPTIN PHOS 100 MG TAB PO SCH (08:18)
[2020-09-06] MEDS: FUROSEMIDE 20 MG/ 2ML VIAL IV SCH (08:18)
[2020-09-06] MEDS: METHYLPREDNISOLONE 125 MG INJ IV SCH ×3 (08:18→19:59)
[2020-09-06] MEDS: Remdesivir 100 MG in NA CHLORIDE 0.9% 250 ML IV SCH (09:17)
--- NOTE | 2020-09-06 11:00 | P.PN ---
Subjective Date of Service: 09/06/20 Chief Complaint: Respiratory failure No change still experiencing significant desaturation minimal subcutaneous palpable emphysema on the right neck area Review of Systems General: Weakness Respiratory: Shortness of Breath Physical Examination - Vital Signs Temperature: 96.9 F Blood Pressure: 132/75 Pulse: 97 Respirations: 22 Pulse Ox (%): 94 - Studies Medications List Reviewed: Yes Assessment & Plan - Problems (Diagnosis) (1) Pneumonia due to COVID-19 virus Onset Date: ~08/30/20 Current Visit: Yes Status: Acute Plan: Respiratory failure an resume BiPAP there is no evidence of visible mediastinal emphysema on the chest x-ray continue with low-dose Lasix continue with Solu- Medrol ferritin levels are declining chest x-ray did show some improvement
--- NOTE | 2020-09-06 15:36 | P.PN ---
Subjective Date of Service: 09/06/20 Chief Complaint: Respiratory failure Subjective: Improving Physical Examination - Vital Signs Temperature: 96.7 F Blood Pressure: 146/81 Pulse: 100 Respirations: 24 Pulse Ox (%): 88 - Studies Medications List Reviewed: Yes Assessment & Plan Discharge Plan: Home Plan to discharge in: Greater than 2 days Physician Review Additional Text: Physical exam: Patient alert, cooperative. No significant distress noted. Heart: normal rythym Lungs: currently on BiPAP at 75% Fi02. GI: Soft, nondistended. Extremities: Patient moving appropriately without difficulty. No swelling noted. Impression: Shortness of breath secondary to acute respiratory failure with hypoxia related to bilateral COVID 19 pneumonia HTN DM Type 2 with hyperglycemia Hyperlipidemia BPH Plan: Shortness of breath secondary to acute respiratory failure with hypoxia related to bilateral COVID 19 pneumonia: Patient remains stable. Slow improvement noted. Patient remains on BiPAP at 75%. Anticipate respiratory to wean down to nasal cannula soon. Case discussed with pulmonology. CRP and ferritin level improving. Continue with IV steroids, supplementation and Remdesivir. Continue Eliquis for DVT prophylaxis. Encourage ambulation. Encourage incentive spirometer. Encourage proning. Continue to monitor lab closely. Patient motivated to ambulate. . Anticipate improvement over the next 48 hr. HTN: Blood pressure elevated. Will add carvedilol. Blood pressure slightly elevated. Discontinue lisinopril. Will make further adjustments in medication. DM Type 2 with hyperglycemia: Hemoglobin A1c 7.1. Blood sugars better controlled with adjustments and Lantus. Continue to adjust Lantus for better diabetic control. Accucheck in place. Hyperlipidemia: Continue Lipitor BPH: Continue Flomax Time Spent Managing Pts Care (In Minutes): 55
[2020-09-06] MEDS: MELATONIN 5 MG TABLET PO SCH (19:57)
[2020-09-06] MEDS: carvediloL 6.25 MG TAB PO SCH (19:57)
[2020-09-06] MEDS: ATORVASTATIN 20 MG TAB PO SCH (19:57)
[2020-09-06] MEDS: INSULIN GLARGINE 100 UNITS/ML SQ SCH (19:58)
[2020-09-07 06:31] LABS: C-Reactive Protein 31.5 mg/L (<3.00); Ferritin 1643.7 ng/mL (26-388)
[2020-09-07] MEDS: INSULIN -REGULAR HUMAN 50 UNIT/0.5 ML ML SQ SCH ×4 (07:30→20:08)
[2020-09-07] MEDS: METHYLPREDNISOLONE 125 MG INJ IV SCH ×3 (08:19→20:09)
[2020-09-07] MEDS: TAMSULOSIN 0.4 MG SR CAP PO SCH (08:20)
[2020-09-07] MEDS: FUROSEMIDE 20 MG/ 2ML VIAL IV SCH (08:20)
[2020-09-07] MEDS: AMLODIPINE 5 MG TAB PO SCH (08:20)
[2020-09-07] MEDS: FAMOTIDINE 20 MG TAB PO SCH ×2 (08:21→20:10)
[2020-09-07] MEDS: APIXABAN 5 MG TABLET PO SCH ×2 (08:21→20:09)
[2020-09-07] MEDS: METFORMIN HCL 500 MG TAB PO SCH ×2 (08:21→17:08)
[2020-09-07] MEDS: carvediloL 6.25 MG TAB PO SCH ×2 (08:21→20:09)
[2020-09-07] MEDS: SITAGLIPTIN PHOS 100 MG TAB PO SCH (08:21)
[2020-09-07] MEDS: ZINC SULFATE 220 MG CAP PO SCH (08:22)
[2020-09-07] MEDS: VITAMIN D 5,000 UNIT CAP PO SCH (08:22)
[2020-09-07] MEDS: ASCORBIC ACID 500 MG TABLET PO SCH ×4 (08:22→20:09)
[2020-09-07] MEDS ORDERED: AMLODIPINE 5 MG TAB PO SCH (09:00)
--- NOTE | 2020-09-07 10:35 | P.PN ---
Subjective Date of Service: 09/07/20 Chief Complaint: Respiratory failure Patient feels well, although still requiring high concentrations of oxygen Review of Systems General: Weakness Respiratory: Shortness of Breath Physical Examination - Vital Signs Temperature: 98.6 F Blood Pressure: 133/76 Pulse: 62 Respirations: 20 Pulse Ox (%): 84 - Physical Exam General: Alert, In no apparent distress, Oriented x3 - Studies Medications List Reviewed: Yes Assessment & Plan - Problems (Diagnosis) (1) Pneumonia due to COVID-19 virus Onset Date: ~08/30/20 Current Visit: Yes Status: Acute Plan: Respiratory failure patient is subjectively feeling better still requiring high concentrations of oxygen white count is mildly elevated vital signs stable patient's creatinine is mildly elevated
[2020-09-07] MEDS ORDERED: TRAMADOL HCL 50 MG TAB PO PRN (14:16)
--- NOTE | 2020-09-07 14:22 | P.PN ---
Subjective Date of Service: 09/07/20 Chief Complaint: Respiratory failure Subjective: Other (Slight improvement noted. Patient on BiPAP at 80% FiO2.) Physical Examination - Vital Signs Temperature: 97.0 F Blood Pressure: 94/78 Pulse: 84 Respirations: 24 Pulse Ox (%): 88 - Studies Medications List Reviewed: Yes Assessment & Plan Discharge Plan: Home Plan to discharge in: Greater than 2 days Physician Review Additional Text: Chief complaint: Shortness of breath, positive for COVID Physical exam: Patient alert, cooperative. No significant distress noted. Heart: normal rythym Lungs: currently on BiPAP at 75% Fi02. GI: Soft, nondistended. Extremities: Patient moving appropriately without difficulty. No swelling noted. Impression: Shortness of breath secondary to acute respiratory failure with hypoxia related to bilateral COVID 19 pneumonia HTN DM Type 2 with hyperglycemia Hyperlipidemia BPH Plan: Shortness of breath secondary to acute respiratory failure with hypoxia related to bilateral COVID 19 pneumonia: Slow improvement noted. Patient remains on 80% Fi02. Some mild subcutaneous emphysema noted on the right side. Respiratory to wean down to high-flow oxygen today. Case discussed with pulmonology. Slight rise in CRP/ferritin. Continue monitor levels closely. Continue with IV steroids, supplementation. Will change IV Lasix to oral. Consider increase of Solu-Medrol if CRP still elevated tomorrow. Patient has finished course of Remdesivir. Continue Eliquis for DVT prophylaxis. Encourage ambulation. Encourage incentive spirometer. Encourage proning. Continue to monitor lab closely. Recheck chest x-ray tomorrow. Anticipate improvement over the next 72 hr. HTN: Blood pressure better controlled. Currently on carvedilol, Norvasc. Lisinopril discontinued yesterday. Will continue make adjustments. DM Type 2 with hyperglycemia: Hemoglobin A1c 7.1. Blood sugars better controlled with adjustments and Lantus. Continue to adjust Lantus for better diabetic control. Accucheck in place. Hyperlipidemia: Continue Lipitor BPH: Continue Flomax Time Spent Managing Pts Care (In Minutes): 55
[2020-09-07] MEDS: INSULIN GLARGINE 100 UNITS/ML SQ SCH (20:09)
[2020-09-07] MEDS: ATORVASTATIN 20 MG TAB PO SCH (20:09)
[2020-09-07] MEDS: MELATONIN 5 MG TABLET PO SCH (20:10)
[2020-09-08 06:00] LABS: Absolute Lymphocytes (CBC) 0.3 K/uL (0.7-4.9); Basophils % 0.2 % (0-1.3); Hematocrit 37.1 % (39.6-49.0); Lymphocytes % 1.6 % (15.3-44.8); MPV 9.1 fL (7.6-11.3); RBC Red Blood Cell Count 4.14 M/uL (4.33-5.43)
[2020-09-08] MEDS: INSULIN -REGULAR HUMAN 50 UNIT/0.5 ML ML SQ SCH ×4 (07:30→20:00)
[2020-09-08 07:58] LABS: C-Reactive Protein 21.5 mg/L (<3.00); Ferritin 1679.7 ng/mL (26-388); Potassium 4.4 mmol/L (3.5-5.1)
[2020-09-08] MEDS: METFORMIN HCL 500 MG TAB PO SCH ×2 (08:00→16:59)
[2020-09-08] MEDS: carvediloL 6.25 MG TAB PO SCH ×2 (08:00→20:01)
[2020-09-08] MEDS: VITAMIN D 5,000 UNIT CAP PO SCH (08:00)
[2020-09-08] MEDS: TAMSULOSIN 0.4 MG SR CAP PO SCH (08:00)
[2020-09-08] MEDS: FUROSEMIDE 20 MG TABLET PO SCH (08:01)
[2020-09-08] MEDS: APIXABAN 5 MG TABLET PO SCH ×2 (08:03→20:01)
[2020-09-08] MEDS: METHYLPREDNISOLONE 125 MG INJ IV SCH ×3 (08:03→19:59)
[2020-09-08] MEDS: FAMOTIDINE 20 MG TAB PO SCH ×2 (08:03→20:01)
[2020-09-08] MEDS: ZINC SULFATE 220 MG CAP PO SCH (08:03)
[2020-09-08] MEDS: ASCORBIC ACID 500 MG TABLET PO SCH ×4 (08:03→20:01)
[2020-09-08] MEDS: SITAGLIPTIN PHOS 100 MG TAB PO SCH (08:03)
--- NOTE | 2020-09-08 10:27 | P.PN ---
Subjective Date of Service: 09/08/20 Chief Complaint: Respiratory failure Subjective: Other (Patient alert, cooperative.) Physical Examination - Vital Signs Temperature: 97.3 F Blood Pressure: 112/89 Pulse: 85 Respirations: 19 Pulse Ox (%): 90 - Studies Medications List Reviewed: Yes Assessment & Plan Discharge Plan: Home Plan to discharge in: Greater than 2 days Physician Review Additional Text: Chief complaint: Shortness of breath, positive for COVID Physical exam: Patient alert, cooperative. No significant distress noted. Patient able to be sitting with BiPAP. Neck: Subcutaneous emphysema noted without change Heart: normal rythym Lungs: currently on BiPAP at 70 % Fi02. GI: Soft, nondistended. Extremities: Patient moving appropriately without difficulty. No swelling noted. Impression: Shortness of breath secondary to acute respiratory failure with hypoxia related to bilateral COVID 19 pneumonia HTN DM Type 2 with hyperglycemia Hyperlipidemia BPH Plan: Shortness of breath secondary to acute respiratory failure with hypoxia related to bilateral COVID 19 pneumonia: Slow improvement noted. Less oxygen requirement today at 80% Fi02 BiPAP. Nurses also report improvement. Respiratory to continue to wean down to high-flow oxygen if possible. Patient was able to do some high-flow yesterday. Case discussed with pulmonology. Ferritin, CRP remained stable. Chest x-ray ordered. Continue 2 monitor levels closely. Continue with IV steroids, supplementation. Patient on oral Lasix. Patient has finished course of Remdesivir. Continue Eliquis for DVT prophylaxis. Encourage ambulation. Encourage incentive spirometer. Encourage proning. I will turn the service over to the hospitalist team tomorrow. I will go plan of care with him. Anticipate improvement over the next 48-72 hr. HTN: Blood pressure better controlled. Currently on carvedilol, Norvasc. Patient no longer on lisinopril. Will continue make adjustments as needed. DM Type 2 with hyperglycemia: Hemoglobin A1c 7.1. Blood sugars better controlled with adjustments and Lantus. Continue to adjust Lantus for better diabetic control. Accucheck in place. Hyperlipidemia: Continue Lipitor BPH: Continue Flomax Time Spent Managing Pts Care (In Minutes): 55
--- NOTE | 2020-09-08 11:44 | RAD REPORT ---
EXAM DESCRIPTION: RAD - Chest Single View - 09/08/2020 6:23 am CLINICAL HISTORY: follow up COVID Chest pain. COMPARISON: Chest Single View dated 09/02/2020; Chest Single View dated 08/29/2020 FINDINGS: Portable technique limits examination quality. Extensive bilateral pulmonary opacities are again noted, slightly worse relative to prior study. Mode rate subcutaneous emphysema has developed since the prior exam. The heart is normal in size.
[2020-09-08] MEDS: AMLODIPINE 5 MG TAB PO SCH (11:59)
[2020-09-08] MEDS: INSULIN GLARGINE 100 UNITS/ML SQ SCH (20:00)
[2020-09-08] MEDS: MELATONIN 5 MG TABLET PO SCH (20:00)
[2020-09-08] MEDS: ATORVASTATIN 20 MG TAB PO SCH (20:00)
[2020-09-09 05:45] LABS: C-Reactive Protein 14.8 mg/L (<3.00); Ferritin 1742.3 ng/mL (26-388)
[2020-09-09] MEDS: INSULIN -REGULAR HUMAN 50 UNIT/0.5 ML ML SQ SCH ×4 (07:30→21:53)
[2020-09-09] MEDS: VITAMIN D 5,000 UNIT CAP PO SCH (08:30)
[2020-09-09] MEDS: METHYLPREDNISOLONE 125 MG INJ IV SCH ×3 (08:30→21:52)
[2020-09-09] MEDS: FAMOTIDINE 20 MG TAB PO SCH ×2 (08:30→21:53)
[2020-09-09] MEDS: ZINC SULFATE 220 MG CAP PO SCH (08:30)
[2020-09-09] MEDS: TAMSULOSIN 0.4 MG SR CAP PO SCH (08:30)
[2020-09-09] MEDS: ASCORBIC ACID 500 MG TABLET PO SCH ×4 (08:30→21:54)
[2020-09-09] MEDS: FUROSEMIDE 20 MG TABLET PO SCH (08:31)
[2020-09-09] MEDS: METFORMIN HCL 500 MG TAB PO SCH ×2 (08:31→18:13)
[2020-09-09] MEDS: carvediloL 6.25 MG TAB PO SCH ×2 (08:31→21:54)
[2020-09-09] MEDS: AMLODIPINE 5 MG TAB PO SCH (08:31)
[2020-09-09] MEDS: SITAGLIPTIN PHOS 100 MG TAB PO SCH (08:31)
[2020-09-09] MEDS: APIXABAN 5 MG TABLET PO SCH ×2 (08:31→21:54)
--- NOTE | 2020-09-09 11:35 | P.PN ---
Subjective Date of Service: 09/09/20 Chief Complaint: Respiratory failure The still requiring significant concentrations of oxygen low saturation Review of Systems General: Weakness Respiratory: Shortness of Breath Physical Examination - Vital Signs Temperature: 97.8 F Blood Pressure: 125/73 Pulse: 106 Respirations: 25 Pulse Ox (%): 74 - Studies Medications List Reviewed: Yes Assessment & Plan - Problems (Diagnosis) (1) Pneumonia due to COVID-19 virus Onset Date: ~08/30/20 Current Visit: Yes Status: Acute Plan: Respiratory failure no change continue to wean down on oxygen as tolerated blood pressure is stable labs reviewed renal function improving ferritin level still high ARDS and chest x-ray
--- NOTE | 2020-09-09 14:14 | P.PN ---
Subjective Date of Service: 09/09/20 Patient still fighting COVID-19 pneumonia. Still remains tachypneic and on high-flow oxygen. He is on FiO2 of 100%. Patient also with non-rebreather mask. Trying to refrain from using BiPAP as patient has subcutaneous emphysema. No pneumomediastinum seen on chest x-ray. I personally was not able to feel any crepitus. Review of Systems 10-point ROS is otherwise unremarkable Physical Examination - Vital Signs Temperature: 97.2 F Blood Pressure: 129/76 Pulse: 103 Respirations: 18 Pulse Ox (%): 87 - Physical Exam General: Alert, In no apparent distress, Oriented x3 Respiratory: Diminished, Rhonchi/gurgles Cardiovascular: Regular rate/rhythm, Normal S1 S2, No murmurs Gastrointestinal: Normal bowel sounds, Soft and benign, Non-distended, No tenderness, No rebound, No guarding Musculoskeletal: No clubbing, No swelling, No tenderness Neurological: Normal strength at 5/5 x4 extr, Sensation intact, Cranial nerves 3-12 intact - Studies Medications List Reviewed: Yes Assessment & Plan - Problems (Diagnosis) (1) Pneumonia due to COVID-19 virus Onset Date: ~08/30/20 Current Visit: Yes Status: Acute (2) DM2 (diabetes mellitus, type 2) Current Visit: Yes Status: Acute Qualifiers: Diabetes mellitus retirement insulin use: without retirement use (3) HTN (hypertension) Current Visit: Yes Status: Acute Qualifiers: Hypertension type: essential hypertension Qualified Code(s): I10 - Essential (primary) hypertension - Plan Continue with plan of care as mentioned below 1. Continue with IV steroids 2. COVID-19 pneumonia treatment with Ivermectin 3. Repeat chest x-ray if symptoms are progressively worsening 4. O2 per protocol 5. Pulmonary consultation appreciated 6. Continue with albuterol inhaler therapy; IV zinc and vitamin-C 7. O2 per protocol 8. Monitor LFTs 9. Repeat labs including D-dimer, ferritin, and CRP and LFTs 10. GI and DVT prophylaxis Discharge Plan: Home Plan to discharge in: Greater than 2 days - Advance Directives Does patient have a Living Will: No Does patient have a Durable POA for Healthcare: No - Code Status/Comfort Care Code Status: Full Code Critical Care: No Time Spent Managing PTS Care (In Minutes): 35
[2020-09-09] MEDS: INSULIN GLARGINE 100 UNITS/ML SQ SCH (21:53)
[2020-09-09] MEDS: MELATONIN 5 MG TABLET PO SCH (21:53)
[2020-09-09] MEDS: ATORVASTATIN 20 MG TAB PO SCH (21:54)
[2020-09-10 05:23] LABS: Absolute Lymphocytes (CBC) 0.2 K/uL (0.7-4.9); Basophils % 0.3 % (0-1.3); Hematocrit 36.4 % (39.6-49.0); Lymphocytes % 1.5 % (15.3-44.8); MPV 9.6 fL (7.6-11.3); RBC Red Blood Cell Count 4.09 M/uL (4.33-5.43)
[2020-09-10 05:36] LABS: C-Reactive Protein 9.21 mg/L (<3.00); Ferritin 1813.4 ng/mL (26-388); Potassium 4.7 mmol/L (3.5-5.1)
[2020-09-10] MEDS: INSULIN -REGULAR HUMAN 50 UNIT/0.5 ML ML SQ SCH ×4 (07:30→20:19)
[2020-09-10] MEDS: METFORMIN HCL 500 MG TAB PO SCH ×2 (08:00→16:39)
[2020-09-10 08:08] LABS: Blood Morphology Comment NOT SEEN (NOT SEEN); Platelet Estimate ADEQ
[2020-09-10] MEDS: SITAGLIPTIN PHOS 100 MG TAB PO SCH (09:00)
[2020-09-10] MEDS: FUROSEMIDE 20 MG TABLET PO SCH (09:05)
[2020-09-10] MEDS: ASCORBIC ACID 500 MG TABLET PO SCH ×4 (09:05→20:20)
[2020-09-10] MEDS: VITAMIN D 5,000 UNIT CAP PO SCH (09:05)
[2020-09-10] MEDS: FAMOTIDINE 20 MG TAB PO SCH ×2 (09:05→20:21)
[2020-09-10] MEDS: carvediloL 6.25 MG TAB PO SCH (09:05)
[2020-09-10] MEDS: APIXABAN 5 MG TABLET PO SCH ×2 (09:05→20:20)
[2020-09-10] MEDS: METHYLPREDNISOLONE 125 MG INJ IV SCH ×3 (09:06→20:20)
[2020-09-10] MEDS: ZINC SULFATE 220 MG CAP PO SCH (09:06)
[2020-09-10] MEDS: AMLODIPINE 5 MG TAB PO SCH (09:07)
[2020-09-10] MEDS: TAMSULOSIN 0.4 MG SR CAP PO SCH (09:08)
--- NOTE | 2020-09-10 12:22 | P.PN ---
Subjective Date of Service: 09/10/20 Chief Complaint: Respiratory failure No change feeling better still requiring high concentrations of oxygen Review of Systems General: Weakness Respiratory: Shortness of Breath Physical Examination - Vital Signs Temperature: 97.2 F Blood Pressure: 129/76 Pulse: 103 Respirations: 18 Pulse Ox (%): 87 - Studies Medications List Reviewed: Yes Assessment & Plan - Problems (Diagnosis) (1) Pneumonia due to COVID-19 virus Onset Date: ~08/30/20 Current Visit: Yes Status: Acute Plan: Respiratory failure continue to titrate O2 down is still alternating with high- flow on BiPAP patient developed some hypoglycemia today Dc carvedilol prognosis poor labs reviewed
[2020-09-10] MEDS ORDERED: D50W 25 GM/50 ML SYRINGE IV PRN (19:34)
[2020-09-10] MEDS: INSULIN GLARGINE 100 UNITS/ML SQ SCH (20:19)
[2020-09-10] MEDS: MELATONIN 5 MG TABLET PO SCH (20:21)
[2020-09-10] MEDS: ATORVASTATIN 20 MG TAB PO SCH (20:21)
[2020-09-11 05:11] LABS: Absolute Lymphocytes (CBC) 0.2 K/uL (0.7-4.9); Basophils % 0.2 % (0-1.3); Hematocrit 36.4 % (39.6-49.0); Lymphocytes % 1.4 % (15.3-44.8); MPV 9.5 fL (7.6-11.3); RBC Red Blood Cell Count 4.06 M/uL (4.33-5.43)
[2020-09-11 05:33] LABS: C-Reactive Protein 6.97 mg/L (<3.00); Ferritin 1988.1 ng/mL (26-388); Potassium 4.7 mmol/L (3.5-5.1)
[2020-09-11] MEDS: INSULIN -REGULAR HUMAN 50 UNIT/0.5 ML ML SQ SCH ×4 (07:24→20:04)
[2020-09-11] MEDS: METFORMIN HCL 500 MG TAB PO SCH ×2 (08:36→18:00)
[2020-09-11] MEDS: ASCORBIC ACID 500 MG TABLET PO SCH ×4 (08:36→20:05)
[2020-09-11] MEDS: ZINC SULFATE 220 MG CAP PO SCH (08:36)
[2020-09-11] MEDS: FUROSEMIDE 20 MG TABLET PO SCH (08:37)
[2020-09-11] MEDS: SITAGLIPTIN PHOS 100 MG TAB PO SCH (08:37)
[2020-09-11] MEDS: AMLODIPINE 5 MG TAB PO SCH (08:37)
[2020-09-11] MEDS: VITAMIN D 5,000 UNIT CAP PO SCH (08:38)
[2020-09-11] MEDS: FAMOTIDINE 20 MG TAB PO SCH ×2 (08:38→20:06)
[2020-09-11] MEDS: APIXABAN 5 MG TABLET PO SCH ×2 (08:39→20:06)
[2020-09-11] MEDS: METHYLPREDNISOLONE 125 MG INJ IV SCH ×3 (08:43→20:05)
[2020-09-11] MEDS: TAMSULOSIN 0.4 MG SR CAP PO SCH (08:44)
--- NOTE | 2020-09-11 11:42 | P.PN ---
Subjective Date of Service: 09/11/20 Chief Complaint: Respiratory failure Patient is subjectively feeling better still requiring high concentrations of oxygen sleeping in prone position Review of Systems Respiratory: Shortness of Breath Physical Examination - Vital Signs Temperature: 98.4 F Blood Pressure: 122/67 Pulse: 99 Respirations: 23 Pulse Ox (%): 100 - Studies Medications List Reviewed: Yes Assessment & Plan - Problems (Diagnosis) (1) Pneumonia due to COVID-19 virus Onset Date: ~08/30/20 Current Visit: Yes Status: Acute Plan: Respiratory failure labs reviewed white count is declining continue with present treatment continue to wean off oxygen otherwise no change blood sugars under control
[2020-09-11] MEDS ORDERED: GLUCERNA SHAKE 237 ML CAN PO PRN (14:40)
[2020-09-11] MEDS ORDERED: D50W 25 GM/50 ML VIAL IV PRN (15:00)
[2020-09-11] MEDS: INSULIN GLARGINE 100 UNITS/ML SQ SCH (20:03)
[2020-09-11] MEDS: ATORVASTATIN 20 MG TAB PO SCH (20:05)
[2020-09-11] MEDS: MELATONIN 5 MG TABLET PO SCH (20:06)
[2020-09-12 05:31] LABS: Absolute Lymphocytes (CBC) 0.2 K/uL (0.7-4.9); Basophils % 0.4 % (0-1.3); Lymphocytes % 1.5 % (15.3-44.8); MPV 9.6 fL (7.6-11.3); RBC Red Blood Cell Count 4.25 M/uL (4.33-5.43)
[2020-09-12 06:03] LABS: C-Reactive Protein 6.36 mg/L (<3.00); Ferritin 2314.8 ng/mL (26-388); Potassium 5.1 mmol/L (3.5-5.1)
[2020-09-12] MEDS: INSULIN -REGULAR HUMAN 50 UNIT/0.5 ML ML SQ SCH ×4 (07:30→21:18)
--- NOTE | 2020-09-12 08:02 | P.PN ---
Date of Service: 09/10/20 Subjective Maybe some minor improvements. Still on high-flow. FiO2 100%. Face mask on top of the high flow. Review of Systems 10-point ROS is otherwise unremarkable Physical Examination - Vital Signs Reviewed - Physical Exam General: Alert, In no apparent distress, Oriented x3 Respiratory: Diminished, Rhonchi/gurgles Cardiovascular: Regular rate/rhythm, Normal S1 S2, No murmurs Gastrointestinal: Normal bowel sounds, Soft and benign, Non-distended, No tenderness, No rebound, No guarding Musculoskeletal: No clubbing, No swelling, No tenderness Neurological: Strength is slightly diminished but overall within normal limits - Studies Medications List Reviewed: Yes Assessment & Plan - Problems (Diagnosis) (1) Pneumonia due to COVID-19 virus Onset Date: ~08/30/20 Current Visit: Yes Status: Acute (2) DM2 (diabetes mellitus, type 2) Current Visit: Yes Status: Acute 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 Continue with IV steroids 2. s/p Ivermectin 3. Repeat chest x-ray to monitors subcutaneous emphysema 4. O2 per protocol 5. Pulmonary consultation appreciated 6. Continue with albuterol inhaler therapy; IV zinc and vitamin-C 7. Continue with physical activity 8. Monitor LFTs 9. Inflammatory markers 10. GI and DVT prophylaxis
--- NOTE | 2020-09-12 08:04 | P.PN ---
Date of Service: 09/11/20 Subjective Patient has been on 80% high-flow today. Oxygenation up to 90% as when he was laying in bed his oxygen level did go down a little bit. Clinically he looks to be doing okay. He is talking in full sentences. Weaning him down very slowly. Review of Systems 10-point ROS is otherwise unremarkable Physical Examination - Vital Signs Reviewed - Physical Exam General: Alert, In no apparent distress, Oriented x3 Respiratory: Diminished, Rhonchi/gurgles Cardiovascular: Regular rate/rhythm, Normal S1 S2, No murmurs Gastrointestinal: Normal bowel sounds, Soft and benign, Non-distended, No tenderness, No rebound, No guarding Musculoskeletal: No clubbing, No swelling, No tenderness Neurological: Strength is slightly diminished but overall within normal limits Skin: Patient was some crepitus on the left chest wall - Studies Medications List Reviewed: Yes Assessment & Plan - Problems (Diagnosis) (1) Pneumonia due to COVID-19 virus Onset Date: ~08/30/20 Current Visit: Yes Status: Acute (2) DM2 (diabetes mellitus, type 2) Current Visit: Yes Status: Acute Qualifiers: Diabetes mellitus custodial insulin use: without custodial use (3) HTN (hypertension) Current Visit: Yes Status: Acute Qualifiers: Hypertension type: essential hypertension Qualified Code(s): I10 - Essential (primary) hypertension - Plan Continue with plan of care as mentioned below 1. Continue with IV steroids; may need to taper 2. s/p Ivermectin 3. Monitor subcutaneous emphysema closely 4. O2 per protocol 5. Pulmonary consultation appreciated 6. Continue with albuterol inhaler therapy; IV zinc and vitamin-C 7. Continue with physical activity 8. GI and DVT prophylaxis
--- NOTE | 2020-09-12 08:16 | P.PN ---
Subjective Date of Service: 09/12/20 Chief Complaint: Respiratory failure Subjectively doing better still short of breath hypoxic oxygen requirements have improved today sats have improved Review of Systems Respiratory: Shortness of Breath Physical Examination - Vital Signs Temperature: 97.0 F Blood Pressure: 125/74 Pulse: 68 Respirations: 13 Pulse Ox (%): 93 - Studies Medications List Reviewed: Yes Assessment & Plan - Problems (Diagnosis) (1) Pneumonia due to COVID-19 virus Onset Date: ~08/30/20 Current Visit: Yes Status: Acute Plan: Respiratory failure continue to titrate oxygen down blood sugars controlled
[2020-09-12] MEDS: VITAMIN D 5,000 UNIT CAP PO SCH (09:33)
[2020-09-12] MEDS: AMLODIPINE 5 MG TAB PO SCH (09:33)
[2020-09-12] MEDS: ASCORBIC ACID 500 MG TABLET PO SCH ×4 (09:33→21:17)
[2020-09-12] MEDS: FUROSEMIDE 20 MG TABLET PO SCH (09:33)
[2020-09-12] MEDS: FAMOTIDINE 20 MG TAB PO SCH ×2 (09:33→21:16)
[2020-09-12] MEDS: SITAGLIPTIN PHOS 100 MG TAB PO SCH (09:33)
[2020-09-12] MEDS: METHYLPREDNISOLONE 125 MG INJ IV SCH ×3 (09:33→21:17)
[2020-09-12] MEDS: ZINC SULFATE 220 MG CAP PO SCH (09:35)
[2020-09-12] MEDS: APIXABAN 5 MG TABLET PO SCH ×2 (09:35→21:17)
[2020-09-12] MEDS: METFORMIN HCL 500 MG TAB PO SCH ×2 (09:36→17:34)
[2020-09-12] MEDS: TAMSULOSIN 0.4 MG SR CAP PO SCH (09:37)
[2020-09-12] MEDS: ATORVASTATIN 20 MG TAB PO SCH (21:17)
[2020-09-12] MEDS: MELATONIN 5 MG TABLET PO SCH (21:17)
[2020-09-12] MEDS: INSULIN GLARGINE 100 UNITS/ML SQ SCH (21:18)
[2020-09-13 06:30] LABS: C-Reactive Protein 6.39 mg/L (<3.00); Ferritin 2363.6 ng/mL (26-388)
[2020-09-13] MEDS: INSULIN -REGULAR HUMAN 50 UNIT/0.5 ML ML SQ SCH ×4 (07:30→20:49)
[2020-09-13] MEDS: ZINC SULFATE 220 MG CAP PO SCH (08:21)
[2020-09-13] MEDS: FUROSEMIDE 20 MG TABLET PO SCH (08:21)
[2020-09-13] MEDS: METHYLPREDNISOLONE 125 MG INJ IV SCH ×3 (08:21→19:29)
[2020-09-13] MEDS: METFORMIN HCL 500 MG TAB PO SCH ×2 (08:21→17:07)
[2020-09-13] MEDS: ASCORBIC ACID 500 MG TABLET PO SCH ×4 (08:22→19:29)
[2020-09-13] MEDS: VITAMIN D 5,000 UNIT CAP PO SCH (08:22)
[2020-09-13] MEDS: AMLODIPINE 5 MG TAB PO SCH (08:22)
[2020-09-13] MEDS: SITAGLIPTIN PHOS 100 MG TAB PO SCH (08:22)
[2020-09-13] MEDS: APIXABAN 5 MG TABLET PO SCH ×2 (08:22→19:29)
[2020-09-13] MEDS: TAMSULOSIN 0.4 MG SR CAP PO SCH (08:22)
[2020-09-13] MEDS: FAMOTIDINE 20 MG TAB PO SCH ×2 (08:24→19:29)
--- NOTE | 2020-09-13 11:00 | P.PN ---
Date of Service: 09/12/20 Subjective Patient is stable. No new complaints. Slowly improving and he states that he feels better. 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 Continue with IV steroids; 2. s/p Ivermectin 3. Monitor subcutaneous emphysema 4. O2 per protocol 5. Pulmonary consultation appreciated 6. Continue with albuterol inhaler therapy; 7. Continue with increasing physical activity 8. GI and DVT prophylaxis
--- NOTE | 2020-09-13 15:25 | P.PN ---
Subjective Date of Service: 09/13/20 Chief Complaint: Respiratory failure Patient is feeling better oxygen requirements are declining Review of Systems Respiratory: Shortness of Breath Physical Examination - Vital Signs Temperature: 96.8 F Blood Pressure: 133/75 Pulse: 97 Respirations: 31 Pulse Ox (%): 91 - Studies Medications List Reviewed: Yes Assessment & Plan - Problems (Diagnosis) (1) Pneumonia due to COVID-19 virus Onset Date: ~08/30/20 Current Visit: Yes Status: Acute Plan: Respiratory failure oxygen requirements declining vital signs stable blood sugars little better controlled no change
[2020-09-13] MEDS: ATORVASTATIN 20 MG TAB PO SCH (19:28)
[2020-09-13] MEDS: MELATONIN 5 MG TABLET PO SCH (19:28)
[2020-09-13] MEDS: INSULIN GLARGINE 100 UNITS/ML SQ SCH (20:48)
[2020-09-14 05:15] LABS: C-Reactive Protein 5.33 mg/L (<3.00); Ferritin 2592.3 ng/mL (26-388)
[2020-09-14] MEDS: INSULIN -REGULAR HUMAN 50 UNIT/0.5 ML ML SQ SCH ×4 (07:30→21:05)
[2020-09-14] MEDS: FUROSEMIDE 20 MG TABLET PO SCH (08:14)
[2020-09-14] MEDS: AMLODIPINE 5 MG TAB PO SCH (08:15)
[2020-09-14] MEDS: APIXABAN 5 MG TABLET PO SCH ×2 (08:15→19:31)
[2020-09-14] MEDS: TAMSULOSIN 0.4 MG SR CAP PO SCH (08:15)
[2020-09-14] MEDS: ZINC SULFATE 220 MG CAP PO SCH (08:15)
[2020-09-14] MEDS: FAMOTIDINE 20 MG TAB PO SCH ×2 (08:15→19:31)
[2020-09-14] MEDS: VITAMIN D 5,000 UNIT CAP PO SCH (08:15)
[2020-09-14] MEDS: SITAGLIPTIN PHOS 100 MG TAB PO SCH (08:16)
[2020-09-14] MEDS: METFORMIN HCL 500 MG TAB PO SCH ×2 (08:16→16:36)
[2020-09-14] MEDS: METHYLPREDNISOLONE 125 MG INJ IV SCH ×3 (08:16→19:32)
--- NOTE | 2020-09-14 08:25 | P.PN ---
Date of Service: 09/13/20 Subjective No significant changes. Patient states he feels better. He said he has been gaining up and walking in place quite a bit today. Nurses said he looks pretty good. He does desat when he ambulates but he recovers quickly. 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 Continue with IV steroids; may need to taper 2. s/p Ivermectin 3. Crepitus is stable; continue to monitor clinically 4. O2 per protocol 5. Pulmonary consultation appreciated 6. Continue with albuterol inhaler therapy as needed; incentive spirometer at bedside 7. Continue with physical activity 8. GI and DVT prophylaxis
[2020-09-14] MEDS: ASCORBIC ACID 500 MG TABLET PO SCH ×4 (10:03→19:32)
[2020-09-14] MEDS: MELATONIN 5 MG TABLET PO SCH (19:31)
[2020-09-14] MEDS: ATORVASTATIN 20 MG TAB PO SCH (19:31)
[2020-09-14] MEDS: INSULIN GLARGINE 100 UNITS/ML SQ SCH (21:00)
[2020-09-15 05:09] LABS: Absolute Lymphocytes (CBC) 0.2 K/uL (0.7-4.9); Basophils % 0.6 % (0-1.3); Hematocrit 39.6 % (39.6-49.0); Lymphocytes % 1.2 % (15.3-44.8); MPV 9.3 fL (7.6-11.3)
[2020-09-15 05:53] LABS: C-Reactive Protein 4.12 mg/L (<3.00); Ferritin 2507.8 ng/mL (26-388); Magnesium 2.7 mg/dL (1.8-2.4); Potassium 5.1 mmol/L (3.5-5.1)
[2020-09-15] MEDS: INSULIN -REGULAR HUMAN 50 UNIT/0.5 ML ML SQ SCH ×4 (07:30→21:06)
[2020-09-15] MEDS: APIXABAN 5 MG TABLET PO SCH ×2 (07:53→21:07)
[2020-09-15] MEDS: FUROSEMIDE 20 MG TABLET PO SCH (07:53)
[2020-09-15] MEDS: METHYLPREDNISOLONE 125 MG INJ IV SCH ×2 (07:53→21:08)
[2020-09-15] MEDS: ASCORBIC ACID 500 MG TABLET PO SCH ×4 (07:54→21:10)
[2020-09-15] MEDS: TAMSULOSIN 0.4 MG SR CAP PO SCH (07:54)
[2020-09-15] MEDS: SITAGLIPTIN PHOS 100 MG TAB PO SCH (07:54)
[2020-09-15] MEDS: FAMOTIDINE 20 MG TAB PO SCH ×2 (07:54→21:07)
[2020-09-15] MEDS: VITAMIN D 5,000 UNIT CAP PO SCH (07:54)
[2020-09-15] MEDS: AMLODIPINE 5 MG TAB PO SCH (07:54)
[2020-09-15] MEDS: ZINC SULFATE 220 MG CAP PO SCH (07:54)
[2020-09-15] MEDS: METFORMIN HCL 500 MG TAB PO SCH ×2 (07:55→16:55)
--- NOTE | 2020-09-15 10:58 | P.PN ---
Subjective Date of Service: 09/15/20 Chief Complaint: Respiratory failure Patient is steadily improving oxygen requirements are declining he is very cooperative Review of Systems General: Weakness Respiratory: Shortness of Breath Physical Examination - Vital Signs Temperature: 96.5 F Blood Pressure: 113/64 Pulse: 106 Respirations: 26 Pulse Ox (%): 93 - Studies Medications List Reviewed: Yes Assessment & Plan - Problems (Diagnosis) (1) Pneumonia due to COVID-19 virus Onset Date: ~08/30/20 Current Visit: Yes Status: Acute Plan: Respiratory failure continue titrate his O2 down which is which are declining blood sugars elevated repeat dose of ivermectin Dc Lasix Dc amlodipine renal fun ction is slightly worse and use dose of Solu-Medrol
[2020-09-15] MEDS ORDERED: IVERMECTIN 3 MG TABLET PO ONE (12:00)
[2020-09-15] MEDS: ATORVASTATIN 20 MG TAB PO SCH (21:07)
[2020-09-15] MEDS: INSULIN GLARGINE 100 UNITS/ML SQ SCH (21:07)
[2020-09-15] MEDS: MELATONIN 5 MG TABLET PO SCH (21:08)
--- NOTE | 2020-09-16 00:58 | P.PN ---
Date of Service: 09/14/20 Subjective Patient continued to slowly Improved. Oxygen saturation on 80% FiO2 are in the low 90s. Continue to wean down FiO2 slowly. Patient is standing more and ambulating more. 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 Continue with IV steroids; On 80 mg IV q.12. Will continue for now. 2. s/p Ivermectin 3. Continue to monitor subcutaneous emphysema clinically 4. O2 per protocol 5. Pulmonary consultation appreciated 6. Continue with albuterol inhaler therapy as needed; incentive spirometer at bedside 7. Continue with physical activity 8. Monitor hydration status 9. GI and DVT prophylaxis
[2020-09-16] MEDS ORDERED: NA CHLORIDE 0.9% 250 ML IV SCH (01:00)
--- NOTE | 2020-09-16 01:04 | P.PN ---
Date of Service: 09/15/20 Subjective Patient is doing well with no new complaints. FiO2 as 75% and saturations in the low 90s. Continuing to gradually improve. Review of Systems 10-point ROS is otherwise unremarkable Physical Examination - Vital Signs Reviewed - Physical Exam General: Alert, In no apparent distress, Oriented x3 Respiratory: Patient is not tachypneic Cardiovascular: Tachycardic Musculoskeletal: No swelling Skin: Minimal crepitus Assessment & Plan - Problems (Diagnosis) (1) Pneumonia due to COVID-19 virus Onset Date: ~08/30/20 Current Visit: Yes Status: Acute (2) DM2 (diabetes mellitus, type 2) Current Visit: Yes Status: Acute Qualifiers: Diabetes mellitus usp insulin use: without terminal operator use (3) HTN (hypertension) Current Visit: Yes Status: Acute Qualifiers: Hypertension type: essential hypertension Qualified Code(s): I10 - Essential (primary) hypertension - Plan Continue with plan of care as mentioned below 1. Continue with IV steroids; On 80 mg IV q.12. Will continue for now. Will need to gradually start weaning down 2. s/p Ivermectin 3. Continue to monitor subcutaneous emphysema clinically; if progressively worsening we will need to do a chest x-ray 4. O2 per protocol 5. Pulmonary consultation appreciated 6. Incentive spirometer at bedside 7. Continue with physical activity 8. Monitor hydration status; renal function is slowly worsening 9. GI and DVT prophylaxis
[2020-09-16 05:17] LABS: Absolute Lymphocytes (CBC) 0.1 K/uL (0.7-4.9); Basophils % 0.2 % (0-1.3); Hematocrit 38.4 % (39.6-49.0); Lymphocytes % 0.9 % (15.3-44.8); MPV 9.4 fL (7.6-11.3); RBC Red Blood Cell Count 4.35 M/uL (4.33-5.43)
[2020-09-16 05:51] LABS: C-Reactive Protein 4.05 mg/L (<3.00); Ferritin 2387.8 ng/mL (26-388); Magnesium 2.6 mg/dL (1.8-2.4); Phosphorus 3.4 mg/dL (2.5-4.9); Potassium 5.1 mmol/L (3.5-5.1)
[2020-09-16 06:05] LABS: Blood Morphology Comment NOT SEEN (NOT SEEN); Platelet Estimate DECR
[2020-09-16] MEDS: INSULIN -REGULAR HUMAN 50 UNIT/0.5 ML ML SQ SCH ×4 (07:30→20:19)
[2020-09-16] MEDS: FAMOTIDINE 20 MG TAB PO SCH ×2 (09:32→20:19)
[2020-09-16] MEDS: METHYLPREDNISOLONE 125 MG INJ IV SCH ×2 (09:32→20:19)
[2020-09-16] MEDS: APIXABAN 5 MG TABLET PO SCH ×2 (09:33→20:14)
[2020-09-16] MEDS: ASCORBIC ACID 500 MG TABLET PO SCH ×4 (09:33→20:20)
[2020-09-16] MEDS: METFORMIN HCL 500 MG TAB PO SCH ×2 (09:33→16:48)
[2020-09-16] MEDS: TAMSULOSIN 0.4 MG SR CAP PO SCH (09:33)
[2020-09-16] MEDS: VITAMIN D 5,000 UNIT CAP PO SCH (09:33)
[2020-09-16] MEDS: SITAGLIPTIN PHOS 100 MG TAB PO SCH (09:33)
[2020-09-16] MEDS: ZINC SULFATE 220 MG CAP PO SCH (09:33)
--- NOTE | 2020-09-16 12:19 | P.PN ---
Subjective Date of Service: 09/16/20 Chief Complaint: Respiratory failure Subjective: Other (Patient stable. Currently on high-flow 75% FiO2.) Physical Examination - Vital Signs Temperature: 96.9 F Blood Pressure: 125/67 Pulse: 105 Respirations: 25 Pulse Ox (%): 92 - Studies Medications List Reviewed: Yes Assessment & Plan Discharge Plan: Home Plan to discharge in: Greater than 2 days Physician Review Additional Text: Chief complaint: Shortness of breath, positive for COVID Physical exam: Patient alert, cooperative. No significant distress noted. Patient able to be sitting with BiPAP. Neck: Subcutaneous emphysema noted without change Heart: normal rythym Lungs: Currently on high-flow OS 75% Fi02. Also using BiPAP. GI: Soft, nondistended. Extremities: Patient moving appropriately without difficulty. No swelling noted. Impression: Shortness of breath secondary to acute respiratory failure with hypoxia related to bilateral COVID 19 pneumonia HTN DM Type 2 with hyperglycemia Hyperlipidemia BPH Plan: Shortness of breath secondary to acute respiratory failure with hypoxia related to bilateral COVID 19 pneumonia: Patient has made slow progress. Continue with high-flow and BiPAP. Continue with IV steroids, supplementation. Continue E liquis for DVT prophylaxis. Encourage ambulation. Encourage incentive spirometer. Encourage proning. Will continue to monitor and assess. Will discuss with family. HTN: Blood pressure better controlled. Currently on carvedilol, Norvasc. Patient no longer on lisinopril. Will continue make adjustments as needed. DM Type 2 with hyperglycemia: Hemoglobin A1c 7.1. Blood sugars better controlled with adjustments and Lantus. Continue to adjust Lantus for better diabetic control. Accucheck in place. Hyperlipidemia: Continue Lipitor BPH: Continue Flomax Time Spent Managing Pts Care (In Minutes): 55
--- NOTE | 2020-09-16 15:39 | P.PN ---
Subjective Date of Service: 09/16/20 Chief Complaint: Respiratory failure Improving. o2 requirement decreasing Review of Systems General: Weakness Respiratory: Shortness of Breath Physical Examination - Vital Signs Temperature: 96.9 F Blood Pressure: 109/70 Pulse: 106 Respirations: 26 Pulse Ox (%): 75 - Studies Medications List Reviewed: Yes Assessment & Plan - Problems (Diagnosis) (1) Pneumonia due to COVID-19 virus Onset Date: ~08/30/20 Current Visit: Yes Status: Acute Plan: REsp failure. Continue to titrate O2 down 88-90%/labs reviewed BS reasonable. Add NPH 10 BID for now. Renal function stable Physician Review Additional Text: Chief complaint: Shortness of breath, positive for COVID Physical exam: Patient alert, cooperative. No significant distress noted. Patient able to be sitting with BiPAP. Neck: Subcutaneous emphysema noted without change Heart: normal rythym Lungs: Currently on high-flow OS 75% Fi02. Also using BiPAP. GI: Soft, nondistended. Extremities: Patient moving appropriately without difficulty. No swelling noted. Impression: Shortness of breath secondary to acute respiratory failure with hypoxia related to bilateral COVID 19 pneumonia HTN DM Type 2 with hyperglycemia Hyperlipidemia BPH Plan: Shortness of breath secondary to acute respiratory failure with hypoxia related to bilateral COVID 19 pneumonia: Patient has made slow progress. Continue with high-flow and BiPAP. Continue with IV steroids, supplementation. Continue Eliquis for DVT prophylaxis. Encourage ambulation. Encourage incentive spirometer. Encourage proning. Will continue to monitor and assess. Will discuss with family. HTN: Blood pressure better controlled. Currently on carvedilol, Norvasc. Patient no longer on lisinopril. Will continue make adjustments as needed. DM Type 2 with hyperglycemia: Hemoglobin A1c 7.1. Blood sugars better co ntrolled with adjustments and Lantus. Continue to adjust Lantus for better diabetic control. Accucheck in place. Hyperlipidemia: Continue Lipitor BPH: Continue Flomax
[2020-09-16] MEDS: INSULIN 70/30 100 UNITS/ML SQ SCH (16:49)
[2020-09-16] MEDS: INSULIN GLARGINE 100 UNITS/ML SQ SCH (20:17)
[2020-09-16] MEDS: ATORVASTATIN 20 MG TAB PO SCH (20:18)
[2020-09-16] MEDS: MELATONIN 5 MG TABLET PO SCH (20:18)
[2020-09-17 05:24] LABS: Absolute Lymphocytes (CBC) 0.2 K/uL (0.7-4.9); Basophils % 0.2 % (0-1.3); Hematocrit 37.4 % (39.6-49.0); Lymphocytes % 1.6 % (15.3-44.8); MPV 10.5 fL (7.6-11.3); RBC Red Blood Cell Count 4.24 M/uL (4.33-5.43)
[2020-09-17 06:04] LABS: Albumin 2.9 g/dL (3.4-5.0); Bilirubin Total 0.8 mg/dL (0.2-1.0); C-Reactive Protein 5.67 mg/L (<3.00); Ferritin 2636.6 ng/mL (26-388); Protein, Total 6.8 g/dL (6.4-8.2)
[2020-09-17] MEDS: INSULIN -REGULAR HUMAN 50 UNIT/0.5 ML ML SQ SCH ×4 (07:30→20:55)
[2020-09-17] MEDS: ASCORBIC ACID 500 MG TABLET PO SCH ×4 (08:43→20:51)
[2020-09-17] MEDS: FAMOTIDINE 20 MG TAB PO SCH ×2 (08:43→20:51)
[2020-09-17] MEDS: METHYLPREDNISOLONE 125 MG INJ IV SCH ×2 (08:43→20:51)
[2020-09-17] MEDS: SITAGLIPTIN PHOS 100 MG TAB PO SCH (08:43)
[2020-09-17] MEDS: METFORMIN HCL 500 MG TAB PO SCH ×2 (08:44→17:26)
[2020-09-17] MEDS: TAMSULOSIN 0.4 MG SR CAP PO SCH (08:44)
[2020-09-17] MEDS: ZINC SULFATE 220 MG CAP PO SCH (08:44)
[2020-09-17] MEDS: VITAMIN D 5,000 UNIT CAP PO SCH (08:44)
[2020-09-17] MEDS: APIXABAN 5 MG TABLET PO SCH ×2 (08:44→20:50)
[2020-09-17] MEDS: INSULIN 70/30 100 UNITS/ML SQ SCH ×2 (08:44→17:26)
--- NOTE | 2020-09-17 12:26 | P.PN ---
Subjective Date of Service: 09/17/20 Chief Complaint: Respiratory failure Subjective: Other (Patient stable on BiPAP 75%.) Physical Examination - Vital Signs Temperature: 96.9 F Blood Pressure: 118/74 Pulse: 103 Respirations: 23 Pulse Ox (%): 89 - Studies Medications List Reviewed: Yes Assessment & Plan Discharge Plan: Home Plan to discharge in: Greater than 2 days Physician Review Additional Text: Chief complaint: Shortness of breath, positive for COVID Physical exam: Patient alert, cooperative. No significant distress noted. Patient able to be sitting with BiPAP. Neck: Subcutaneous emphysema noted without change Heart: normal rythym Lungs: Currently on BiPAP at 75% Fi02. GI: Soft, nondistended. Extremities: Patient moving appropriately without difficulty. No swelling noted. Impression: Shortness of breath secondary to acute respiratory failure with hypoxia related to bilateral COVID 19 pneumonia HTN DM Type 2 with hyperglycemia Hyperlipidemia BPH Plan: Shortness of breath secondary to acute respiratory failure with hypoxia related to bilateral COVID 19 pneumonia: Patient has made slow progress. Continue with high-flow and BiPAP. Encourage ambulation. Continue with IV steroids, supplementation. Continue Eliquis for DVT prophylaxis. Encourage ambulation. Encourage incentive spirometer. Encourage proning. Will continue to monitor and assess. Will discuss with family about the possibility of long-term acute care facility placement or if patient improves then home at discharge. Not able to call out to family due to phone lines being down.. HTN: Blood pressure better controlled. Currently on carvedilol, Norvasc. Patient no longer on lisinopril. Will continue make adjustments as needed. DM Type 2 with hyperglycemia: Hemoglobin A1c 7.1. Blood sugars better c ontrolled with adjustments and Lantus. Continue to adjust Lantus for better diabetic control. Accucheck in place. Hyperlipidemia: Continue Lipitor BPH: Continue Flomax Time Spent Managing Pts Care (In Minutes): 55
--- NOTE | 2020-09-17 17:24 | P.PN ---
Subjective Date of Service: 09/18/20 Chief Complaint: Respiratory failure Improving. o2 requirement decreasing Review of Systems Respiratory: Shortness of Breath Physical Examination - Vital Signs Temperature: 98.7 F Blood Pressure: 124/67 Pulse: 99 Respirations: 21 Pulse Ox (%): 84 - Studies Medications List Reviewed: Yes Assessment & Plan - Problems (Diagnosis) (1) Pneumonia due to COVID-19 virus Onset Date: ~08/30/20 Current Visit: Yes Status: Acute Plan: Res failure.O2 requirements declining No change in therapy. BS controlled Physician Review Additional Text: Chief complaint: Shortness of breath, positive for COVID Physical exam: Patient alert, cooperative. No significant distress noted. Patient able to be sitting with BiPAP. Neck: Subcutaneous emphysema noted without change Heart: normal rythym Lungs: Currently on BiPAP at 75% Fi02. GI: Soft, nondistended. Extremities: Patient moving appropriately without difficulty. No swelling noted. Impression: Shortness of breath secondary to acute respiratory failure with hypoxia related to bilateral COVID 19 pneumonia HTN DM Type 2 with hyperglycemia Hyperlipidemia BPH Plan: Shortness of breath secondary to acute respiratory failure with hypoxia related to bilateral COVID 19 pneumonia: Patient has made slow progress. Continue with high-flow and BiPAP. Encourage ambulation. Continue with IV steroids, supplementation. Continue Eliquis for DVT prophylaxis. Encourage ambulation. Encourage incentive spirometer. Encourage proning. Will continue to monitor and assess. Will discuss with family about the possibility of long-term acute care facility placement or if patient improves then home at discharge. Not able to call out to family due to phone lines being down.. HTN: Blood pressure better controlled. Currently on carvedilol, Norvasc. Patient no longer on lisinopril. Will continue make adjustments as needed. DM Type 2 with hyperglycemia: Hemoglobin A1c 7.1. Blood sugars better controlled with adjustments and Lantus. Continue to adjust Lantus for better diabetic control. Accucheck in place. Hyperlipidemia: Continue Lipitor BPH: Continue Flomax
[2020-09-17] MEDS: ATORVASTATIN 20 MG TAB PO SCH (20:50)
[2020-09-17] MEDS: MELATONIN 5 MG TABLET PO SCH (20:51)
[2020-09-17] MEDS: INSULIN GLARGINE 100 UNITS/ML SQ SCH (20:54)
[2020-09-18 05:12] LABS: Absolute Lymphocytes (CBC) 0.2 K/uL (0.7-4.9); Basophils % 0.2 % (0-1.3); Hematocrit 36.6 % (39.6-49.0); Lymphocytes % 1.2 % (15.3-44.8); MPV 9.8 fL (7.6-11.3); RBC Red Blood Cell Count 4.16 M/uL (4.33-5.43)
[2020-09-18 05:43] LABS: Albumin 2.8 g/dL (3.4-5.0); Bilirubin Total 0.8 mg/dL (0.2-1.0); C-Reactive Protein 3.49 mg/L (<3.00); Ferritin 2327.6 ng/mL (26-388); Potassium 5.1 mmol/L (3.5-5.1); Protein, Total 6.3 g/dL (6.4-8.2)
[2020-09-18] MEDS: INSULIN -REGULAR HUMAN 50 UNIT/0.5 ML ML SQ SCH ×4 (07:30→21:14)
[2020-09-18] MEDS: ASCORBIC ACID 500 MG TABLET PO SCH ×4 (07:49→21:16)
[2020-09-18] MEDS: METFORMIN HCL 500 MG TAB PO SCH ×2 (07:49→16:40)
[2020-09-18] MEDS: VITAMIN D 5,000 UNIT CAP PO SCH (07:49)
[2020-09-18] MEDS: SITAGLIPTIN PHOS 100 MG TAB PO SCH (07:50)
[2020-09-18] MEDS: METHYLPREDNISOLONE 125 MG INJ IV SCH ×2 (07:50→21:16)
[2020-09-18] MEDS: ZINC SULFATE 220 MG CAP PO SCH (07:50)
[2020-09-18] MEDS: TAMSULOSIN 0.4 MG SR CAP PO SCH (07:50)
[2020-09-18] MEDS: FAMOTIDINE 20 MG TAB PO SCH ×2 (07:50→21:15)
[2020-09-18] MEDS: INSULIN 70/30 100 UNITS/ML SQ SCH ×2 (07:51→16:33)
[2020-09-18] MEDS: APIXABAN 2.5 MG TABLET PO SCH ×2 (09:33→21:12)
--- NOTE | 2020-09-18 16:42 | P.PN ---
Subjective Date of Service: 09/18/20 Chief Complaint: Respiratory failure Subjective: Other (Patient remains on BiPAP.) Physical Examination - Vital Signs Temperature: 98.7 F Blood Pressure: 129/71 Pulse: 100 Respirations: 29 Pulse Ox (%): 89 - Studies Medications List Reviewed: Yes Assessment & Plan Discharge Plan: Home Plan to discharge in: Greater than 2 days Physician Review Additional Text: Chief complaint: Shortness of breath, positive for COVID Physical exam: Patient alert, cooperative. No significant distress noted. Patient able to be sitting with BiPAP. Neck: Subcutaneous emphysema noted without change Heart: normal rythym Lungs: Currently on BiPAP at 75% Fi02. GI: Soft, nondistended. Extremities: Patient moving appropriately without difficulty. No swelling noted. Impression: Shortness of breath secondary to acute respiratory failure with hypoxia related to bilateral COVID 19 pneumonia HTN DM Type 2 with hyperglycemia Hyperlipidemia BPH Plan: Shortness of breath secondary to acute respiratory failure with hypoxia related to bilateral COVID 19 pneumonia: Patient has made slow progress. Continue with high-flow and BiPAP. Encourage ambulation. Continue with IV steroids, supplementation. Continue Eliquis for DVT prophylaxis. Encourage ambulation. Encourage incentive spirometer. Encourage proning. Will continue to monitor and assess. Will discuss with family about the possibility of long-term acute care facility placement or if patient improves then home at discharge. Not able to call out to family due to phone lines being down.. HTN: Blood pressure better controlled. Currently on carvedilol, Norvasc. Patient no longer on lisinopril. Will continue make adjustments as needed. DM Type 2 with hyperglycemia: Hemoglobin A1c 7.1. Blood sugars better cont rolled with adjustments and Lantus. Continue to adjust Lantus for better diabetic control. Accucheck in place. Hyperlipidemia: Continue Lipitor BPH: Continue Flomax Time Spent Managing Pts Care (In Minutes): 55
[2020-09-18] MEDS: INSULIN GLARGINE 100 UNITS/ML SQ SCH (21:13)
[2020-09-18] MEDS: GLUCERNA SHAKE 237 ML CAN PO SCH (21:13)
[2020-09-18] MEDS: ATORVASTATIN 20 MG TAB PO SCH (21:14)
[2020-09-18] MEDS: MELATONIN 5 MG TABLET PO SCH (21:14)
[2020-09-19] MEDS: INSULIN 70/30 100 UNITS/ML SQ SCH ×2 (07:30→16:25)
[2020-09-19] MEDS: INSULIN -REGULAR HUMAN 50 UNIT/0.5 ML ML SQ SCH ×4 (07:30→20:08)
[2020-09-19] MEDS: METHYLPREDNISOLONE 125 MG INJ IV SCH ×2 (07:56→20:07)
[2020-09-19] MEDS: ASCORBIC ACID 500 MG TABLET PO SCH ×4 (07:56→20:09)
[2020-09-19] MEDS: FAMOTIDINE 20 MG TAB PO SCH ×2 (07:56→20:08)
[2020-09-19] MEDS: APIXABAN 2.5 MG TABLET PO SCH ×2 (07:56→20:09)
[2020-09-19] MEDS: TAMSULOSIN 0.4 MG SR CAP PO SCH (07:57)
[2020-09-19] MEDS: ZINC SULFATE 220 MG CAP PO SCH (07:57)
[2020-09-19] MEDS: METFORMIN HCL 500 MG TAB PO SCH ×2 (07:57→16:25)
[2020-09-19] MEDS: VITAMIN D 5,000 UNIT CAP PO SCH (07:57)
[2020-09-19] MEDS: SITAGLIPTIN PHOS 100 MG TAB PO SCH (07:58)
--- NOTE | 2020-09-19 09:28 | P.PN ---
Subjective Date of Service: 09/19/20 Chief Complaint: Respiratory failure Subjective: Improving, Doing well Physical Examination - Vital Signs Temperature: 97.7 F Blood Pressure: 110/65 Pulse: 69 Respirations: 11 Pulse Ox (%): 94 - Studies Medications List Reviewed: Yes Assessment & Plan Discharge Plan: Other (home vs LTAC) Plan to discharge in: Greater than 2 days Physician Review Additional Text: Chief complaint: Shortness of breath, positive for COVID Physical exam: Patient alert, cooperative. No significant distress noted. Patient able to be sitting with BiPAP. Neck: Subcutaneous emphysema noted without change Heart: normal rythym Lungs: Currently on BiPAP at 75% Fi02. GI: Soft, nondistended. Extremities: Patient moving appropriately without difficulty. No swelling noted. Impression: Shortness of breath secondary to acute respiratory failure with hypoxia related to bilateral COVID 19 pneumonia HTN DM Type 2 with hyperglycemia Hyperlipidemia BPH Plan: Shortness of breath secondary to acute respiratory failure with hypoxia related to bilateral COVID 19 pneumonia: Patient continues to make slow progress. Continue with high-flow and BiPAP. Encourage ambulation. Continue with IV steroids, supplementation. Continue Eliquis for DVT prophylaxis. Encourage ambulation. Encourage incentive spirometer. Encourage proning. Will continue to monitor and assess. Spoke to family about LTAC. It appears they will agree. Daughter works with Dr. Perkins. Will pursue LTAC. Will consult social service to help with this. HTN: Blood pressure better controlled. Currently on carvedilol, Norvasc. Patient no longer on lisinopril. Will continue make adjustments as needed. DM Type 2 with hyperglycemia: Hemoglobin A1c 7.1. Blood sugars better controlled with adjustments and Lantus. Continue to adjust Lantus for better diabetic control. Accucheck in place. Hyperlipidemia: Continue Lipitor BPH: Continue Flomax Time Spent Managing Pts Care (In Minutes): 55
[2020-09-19] MEDS: GLUCERNA SHAKE 237 ML CAN PO SCH ×3 (11:55→20:52)
[2020-09-19] MEDS: INSULIN GLARGINE 100 UNITS/ML SQ SCH (20:07)
[2020-09-19] MEDS: MELATONIN 5 MG TABLET PO SCH (20:08)
[2020-09-19] MEDS: ATORVASTATIN 20 MG TAB PO SCH (20:09)
[2020-09-20 06:14] LABS: Ferritin 2469.1 ng/mL (26-388)
[2020-09-20 06:15] LABS: C-Reactive Protein < 2.90 mg/L (<3.00)
[2020-09-20] MEDS: INSULIN 70/30 100 UNITS/ML SQ SCH (07:30)
[2020-09-20] MEDS: INSULIN -REGULAR HUMAN 50 UNIT/0.5 ML ML SQ SCH ×4 (07:30→19:45)
[2020-09-20] MEDS: GLUCERNA SHAKE 237 ML CAN PO SCH ×2 (09:00→21:20)
[2020-09-20] MEDS: APIXABAN 2.5 MG TABLET PO SCH (09:00)
--- NOTE | 2020-09-20 09:06 | P.PN ---
Subjective Date of Service: 09/20/20 Chief Complaint: Respiratory failure Subjective: Doing well Physical Examination - Vital Signs Temperature: 97.3 F Blood Pressure: 98/69 Pulse: 89 Respirations: 15 Pulse Ox (%): 91 - Studies Medications List Reviewed: Yes Assessment & Plan Discharge Plan: LTAC (Long-term acute) Plan to discharge in: Greater than 2 days Physician Review Additional Text: Chief complaint: Shortness of breath, positive for COVID Physical exam: Patient alert, cooperative. No significant distress noted. Patient able to be sitting with BiPAP. Neck: Subcutaneous emphysema noted without change Heart: normal rythym Lungs: Currently on BiPAP at 65 % Fi02. GI: Soft, nondistended. Extremities: Patient moving appropriately without difficulty. No swelling noted. Impression: Shortness of breath secondary to acute respiratory failure with hypoxia related to bilateral COVID 19 pneumonia HTN DM Type 2 with hyperglycemia Hyperlipidemia BPH Plan: Shortness of breath secondary to acute respiratory failure with hypoxia related to bilateral COVID 19 pneumonia: Patient continues to make slow progress. Patient sitting in bed this morning. Encourage oral intake. Medications reviewed. Will discontinue insulin/70 30. Continue with Lantus and metformin only. Continue to check lab. Continue wean off high-flow. Encourage ambulation. Continue with IV steroids, supplementation. Continue Eliquis for DVT prophylaxis. Encourage ambulation. Encourage incentive spirometer. Encourage proning. Continue to pursue long-term acute care facility placement. Will discuss with social media sr strategy manager. HTN: Patient no longer on blood pressure medication. Will monitor this closely. DM Type 2 with hyperglycemia: Hemoglobin A1c 7.1. Blood sugars improved. Low blood sugar loaded today. Will discontinue insulin 70/30. Continue with low- dose Lantus. Patient remains on metformin and Januvia. Will monitor and adjust medication closely. Hyperlipidemia: Continue Lipitor BPH: Continue Flomax Time Spent Managing Pts Care (In Minutes): 55
[2020-09-20] MEDS: METFORMIN HCL 500 MG TAB PO SCH ×2 (09:16→15:57)
[2020-09-20] MEDS: METHYLPREDNISOLONE 40 MG INJ IV SCH ×2 (09:17→19:45)
[2020-09-20] MEDS: VITAMIN D 5,000 UNIT CAP PO SCH (09:17)
[2020-09-20] MEDS: SITAGLIPTIN PHOS 100 MG TAB PO SCH (09:17)
[2020-09-20] MEDS: ZINC SULFATE 220 MG CAP PO SCH (09:17)
[2020-09-20] MEDS: ASCORBIC ACID 500 MG TABLET PO SCH ×4 (09:17→19:46)
[2020-09-20] MEDS: FAMOTIDINE 20 MG TAB PO SCH ×2 (09:17→19:46)
[2020-09-20] MEDS: TAMSULOSIN 0.4 MG SR CAP PO SCH (09:18)
--- NOTE | 2020-09-20 12:11 | P.PN ---
Subjective Date of Service: 09/20/20 Chief Complaint: Respiratory failure I patient is feeling weak and tired still requiring high levels of oxygen although the requirements are declining Review of Systems General: Weakness Respiratory: Shortness of Breath Physical Examination - Vital Signs Temperature: 97.3 F Blood Pressure: 98/69 Pulse: 89 Respirations: 15 Pulse Ox (%): 91 - Studies Medications List Reviewed: Yes Assessment & Plan - Problems (Diagnosis) (1) Pneumonia due to COVID-19 virus Onset Date: ~08/30/20 Current Visit: Yes Status: Acute Plan: R respiratory failure oxygen levels declining blood sugars elevated white count is declined the Medrol decrease to 40 b.i.d. in his insulins increased to 20 units twice a day labs reviewed
[2020-09-20] MEDS ORDERED: INSULIN 70/30 100 UNITS/ML SQ SCH (16:30)
[2020-09-20] MEDS: INSULIN GLARGINE 100 UNITS/ML SQ SCH (19:45)
[2020-09-20] MEDS: MELATONIN 5 MG TABLET PO SCH (19:46)
[2020-09-20] MEDS: APIXABAN 5 MG TABLET PO SCH (19:46)
[2020-09-20] MEDS: ATORVASTATIN 20 MG TAB PO SCH (19:46)
[2020-09-20] MEDS ORDERED: LORazepam 2 MG/ML VIAL IV ONE (22:03)
[2020-09-20] MEDS ORDERED: LORazepam 2 MG/ML VIAL ONE (22:22)
[2020-09-21 05:08] LABS: Absolute Lymphocytes (CBC) 0.1 K/uL (0.7-4.9); Basophils % 0.2 % (0-1.3); Hematocrit 41.1 % (39.6-49.0); MPV 10.8 fL (7.6-11.3); RBC Red Blood Cell Count 4.56 M/uL (4.33-5.43)
[2020-09-21 06:00] LABS: C-Reactive Protein 18.2 mg/L (<3.00); Ferritin 2673.3 ng/mL (26-388); Magnesium 2.3 mg/dL (1.8-2.4); Potassium 5.1 mmol/L (3.5-5.1)
[2020-09-21] MEDS: SITAGLIPTIN PHOS 100 MG TAB PO SCH (08:16)
[2020-09-21] MEDS: INSULIN -REGULAR HUMAN 50 UNIT/0.5 ML ML SQ SCH ×4 (08:17→20:22)
[2020-09-21] MEDS: ZINC SULFATE 220 MG CAP PO SCH (08:18)
[2020-09-21] MEDS: METHYLPREDNISOLONE 40 MG INJ IV SCH ×2 (08:18→20:20)
[2020-09-21] MEDS: TAMSULOSIN 0.4 MG SR CAP PO SCH (08:18)
[2020-09-21] MEDS: FAMOTIDINE 20 MG TAB PO SCH ×2 (08:18→20:23)
[2020-09-21] MEDS: METFORMIN HCL 500 MG TAB PO SCH ×2 (08:18→17:00)
[2020-09-21] MEDS: APIXABAN 5 MG TABLET PO SCH ×2 (08:18→20:20)
[2020-09-21] MEDS: ASCORBIC ACID 500 MG TABLET PO SCH ×4 (08:18→20:23)
[2020-09-21] MEDS: VITAMIN D 5,000 UNIT CAP PO SCH (08:18)
[2020-09-21] MEDS: GLUCERNA SHAKE 237 ML CAN PO SCH ×2 (08:19→20:21)
--- NOTE | 2020-09-21 09:16 | P.PN ---
Subjective Date of Service: 09/21/20 Chief Complaint: Respiratory failure Subjective: Other (increased anxiety. No pain noted.) Physical Examination - Vital Signs Temperature: 97 F Blood Pressure: 127/68 Pulse: 109 Respirations: 24 Pulse Ox (%): 93 - Studies Medications List Reviewed: Yes Assessment & Plan Discharge Plan: LTAC Plan to discharge in: Greater than 2 days Physician Review Additional Text: Chief complaint: Shortness of breath, positive for COVID Physical exam: Patient alert, cooperative. Some anxiety noted. Not wanting to use BIPAP. On NRB. Neck: Subcutaneous emphysema noted without change Heart: normal rythym Lungs: Patient currently on NRB. Lungs clear anteriorly. some tachypnea. GI: Soft, nondistended. Extremities: Patient moving appropriately without difficulty. No swelling noted. Impression: Shortness of breath secondary to acute respiratory failure with hypoxia related to bilateral COVID 19 pneumonia HTN DM Type 2 with hyperglycemia Hyperlipidemia BPH Plan: Shortness of breath secondary to acute respiratory failure with hypoxia related to bilateral COVID 19 pneumonia: Increased anxiety. Will give Ativan 0.5 mg now. Check ABG. Check CXR. Encourage to use BIPAP. Await findings. May need to remain on BIPAP for better oxygenation. Will continue to reassess. HTN: Patient no longer on blood pressure medication. Will monitor this closely. DM Type 2 with hyperglycemia: Hemoglobin A1c 7.1. Blood sugars improved. Low blood sugar loaded today. Continue to adjust Lantus for better diabetic control. Patient remains on metformin and Januvia. Will monitor and adjust medication closely. Hyperlipidemia: Continue Lipitor BPH: Continue Flomax Time Spent Managing Pts Care (In Minutes): 5
[2020-09-21] MEDS ORDERED: LORazepam 2 MG/ML VIAL IV PRN (12:43)
[2020-09-21] MEDS ORDERED: LORazepam 2 MG/ML VIAL ONE (13:06)
[2020-09-21 13:46] LABS: Arterial Blood Carboxyhemoglob 1.2 % (0-1.5); Blood Gas Oxyhemoglobin 89.7 % (94-97); Blood O2 Saturation 91.8 % (92-98.5)
--- NOTE | 2020-09-21 13:46 | RAD REPORT ---
EXAM DESCRIPTION: Shawna Single View09/21/2020 1:33 pm CLINICAL HISTORY: Shortness of breath COMPARISON: September 08 FINDINGS: Mild improvement in the bilateral pulmonary opacities. Resolution of the subcutaneous emphysema. Borderline enlargement of the heart IMPRESSION: Mild improvement in the bilateral pulmonary opacities probably pneumonia
[2020-09-21] MEDS: HYDROMORPHONE HCL 0.5 MG/0.5 ML INJ IV PRN (13:54)
[2020-09-21] MEDS: NYSTATIN 500,000 UNIT/5 ML UDC PO SCH ×2 (17:00→20:23)
[2020-09-21] MEDS: INSULIN GLARGINE 100 UNITS/ML SQ SCH (20:21)
[2020-09-21] MEDS: MELATONIN 5 MG TABLET PO SCH (20:23)
[2020-09-21] MEDS: ATORVASTATIN 20 MG TAB PO SCH (20:23)
[2020-09-22] MEDS: HYDROMORPHONE HCL 0.5 MG/0.5 ML INJ IV PRN ×3 (01:33→20:03)
[2020-09-22 06:30] LABS: Ferritin 2289.6 ng/mL (26-388)
[2020-09-22] MEDS: INSULIN -REGULAR HUMAN 50 UNIT/0.5 ML ML SQ SCH ×4 (08:10→19:54)
[2020-09-22] MEDS: FAMOTIDINE 20 MG TAB PO SCH ×2 (08:13→19:53)
[2020-09-22] MEDS: METFORMIN HCL 500 MG TAB PO SCH ×2 (08:13→17:35)
[2020-09-22] MEDS: ZINC SULFATE 220 MG CAP PO SCH (08:13)
[2020-09-22] MEDS: ASCORBIC ACID 500 MG TABLET PO SCH ×4 (08:13→19:54)
[2020-09-22] MEDS: METHYLPREDNISOLONE 40 MG INJ IV SCH ×2 (08:13→19:53)
[2020-09-22] MEDS: VITAMIN D 5,000 UNIT CAP PO SCH (08:13)
[2020-09-22] MEDS: APIXABAN 5 MG TABLET PO SCH ×2 (08:13→19:53)
[2020-09-22] MEDS: TAMSULOSIN 0.4 MG SR CAP PO SCH (08:13)
[2020-09-22] MEDS: SITAGLIPTIN PHOS 100 MG TAB PO SCH (08:13)
[2020-09-22] MEDS: GLUCERNA SHAKE 237 ML CAN PO SCH ×2 (09:00→21:00)
[2020-09-22] MEDS: NYSTATIN 500,000 UNIT/5 ML UDC PO SCH ×4 (09:30→19:53)
--- NOTE | 2020-09-22 10:09 | P.PN ---
Subjective Date of Service: 09/22/20 Primary Care Provider: unknown Chief Complaint: Respiratory failure Subjective: Other (Patient improved since yesterday. Patient had agitation yesterday requiring pain medication.) Physical Examination - Vital Signs Temperature: 97 F Blood Pressure: 125/81 Pulse: 106 Respirations: 14 Pulse Ox (%): 93 - Studies Medications List Reviewed: Yes Assessment & Plan Discharge Plan: LTAC Plan to discharge in: 48 Hours Physician Review Additional Text: Initial Chief complaint: 75-year-old male presented with Shortness of breath, positive for COVID Physical exam: Patient alert, cooperative. Less anxiety noted this morning. Currently on BiPAP. Neck: Last Subcutaneous emphysema noted without change Heart: normal rythym Lungs: Patient currently on NRB. Lungs clear anteriorly. Overall improved since yesterday. GI: Soft, nondistended. Extremities: Patient moving appropriately without difficulty. No swelling noted. Impression: Shortness of breath secondary to acute respiratory failure with hypoxia related to bilateral COVID 19 pneumonia HTN DM Type 2 with hyperglycemia Hyperlipidemia BPH Plan: Shortness of breath secondary to acute respiratory failure with hypoxia related to bilateral COVID 19 pneumonia: Patient had increase anxiety yesterday. Ativan was given but this cause some hallucination. This has been discontinued. Patient responds well to Dilaudid for pain. Chest x-ray shows improvement. Patient tolerating BiPAP. Respiratory to continue to wean off. Spoke with family at length to help encourage patient. The will continue to face time. Continue to monitor and trend ferritin and CRP along with other lab. Social work working to transfer patient to long-term acute care facility. Anticipate this to occur early next week. Patient remains on Eliquis for PE prevention. Patient remains on IV Solu-Medrol and supplementation. I will turn the service over to the hospitalist team tomorrow. I will go plan of care with him. HTN: Patient no longer on blood pressure medication. Will monitor this closely. DM Type 2 with hyperglycemia: Hemoglobin A1c 7.1. Blood sugars improved. Patient on low-dose Lantus. Continue to adjust Lantus for better diabetic control. Patient also remains on metformin and Januvia. Will monitor and adjust medication closely. Hyperlipidemia: Continue Lipitor BPH: Continue Flomax Time Spent Managing Pts Care (In Minutes): 55
[2020-09-22] MEDS: ATORVASTATIN 20 MG TAB PO SCH (19:53)
[2020-09-22] MEDS: MELATONIN 5 MG TABLET PO SCH (19:53)
[2020-09-22] MEDS: INSULIN GLARGINE 100 UNITS/ML SQ SCH (19:54)
[2020-09-23] MEDS: HYDROMORPHONE HCL 0.5 MG/0.5 ML INJ IV PRN ×7 (01:04→21:39)
[2020-09-23] MEDS ORDERED: NA CHLORIDE 0.9% 1,000 ML IV SCH (04:29)
[2020-09-23 05:57] LABS: Absolute Lymphocytes (CBC) 0.1 K/uL (0.7-4.9); Basophils % 0.4 % (0-1.3); Hematocrit 36.1 % (39.6-49.0); Lymphocytes % 1.5 % (15.3-44.8); MPV 9.5 fL (7.6-11.3); RBC Red Blood Cell Count 4.01 M/uL (4.33-5.43)
[2020-09-23 06:32] LABS: BUN Blood Urea Nitrogen 41 mg/dL (7-18); Bicarbonate 25 mmol/L (21-32); Ferritin > 2000.0 ng/mL (26-388); Glucose Level 127 mg/dL (74-106); Magnesium 2.4 mg/dL (1.8-2.4); Sodium Level 138 mmol/L (136-145)
[2020-09-23] MEDS: INSULIN -REGULAR HUMAN 50 UNIT/0.5 ML ML SQ SCH ×4 (07:30→20:56)
[2020-09-23 07:53] LABS: Blood Morphology Comment NOT SEEN (NOT SEEN); Platelet Estimate DECR
[2020-09-23] MEDS ORDERED: METOPROLOL TARTRATE 5 MG/5 ML INJ IV ONE (07:56)
[2020-09-23] MEDS: METFORMIN HCL 500 MG TAB PO SCH ×2 (08:00→17:00)
[2020-09-23] MEDS: METHYLPREDNISOLONE 40 MG INJ IV SCH ×2 (08:59→20:56)
[2020-09-23] MEDS: GLUCERNA SHAKE 237 ML CAN PO SCH ×2 (09:00→20:57)
[2020-09-23] MEDS: SITAGLIPTIN PHOS 100 MG TAB PO SCH (09:00)
[2020-09-23] MEDS: ZINC SULFATE 220 MG CAP PO SCH (09:00)
[2020-09-23] MEDS: TAMSULOSIN 0.4 MG SR CAP PO SCH (09:00)
[2020-09-23] MEDS: VITAMIN D 5,000 UNIT CAP PO SCH (09:00)
[2020-09-23] MEDS: ASCORBIC ACID 500 MG TABLET PO SCH ×4 (09:00→20:58)
[2020-09-23] MEDS: NYSTATIN 500,000 UNIT/5 ML UDC PO SCH ×4 (09:00→20:58)
[2020-09-23] MEDS ORDERED: FUROSEMIDE 20 MG/ 2ML VIAL IV ONE (10:40)
[2020-09-23] MEDS: FLUCONAZOLE 100 MG TAB PO SCH (11:39)
[2020-09-23] MEDS: APIXABAN 5 MG TABLET PO SCH ×2 (11:40→20:57)
[2020-09-23] MEDS: FAMOTIDINE 20 MG TAB PO SCH ×2 (11:40→20:58)
[2020-09-23] MEDS: MIRTAZAPINE 15 MG TAB PO SCH ×2 (11:41→20:58)
--- NOTE | 2020-09-23 14:33 | P.PN ---
Subjective Date of Service: 09/23/20 Patient still fighting COVID-19 pneumonia. Still remains tachypneic and on high-flow oxygen. He is on BIPAP. Patient is doing poorly. Spoke with family and they want everything done. Patient is delirious and not really able to make a decision appropriately. Physical Examination - Vital Signs Temperature: 97.2 F Blood Pressure: 81/61 Pulse: 117 Respirations: 13 Pulse Ox (%): 90 - Physical Exam General: Alert, In no apparent distress Respiratory: Diminished, Crackles/rales, Rhonchi/gurgles Cardiovascular: Normal pulses, Regular rate/rhythm, Normal S1 S2 Gastrointestinal: Normal bowel sounds, Soft and benign, Non-distended Musculoskeletal: No clubbing, Swelling, Erythema, Tenderness Integumentary: Tenderness/swelling, Erythema - Studies Medications List Reviewed: Yes Assessment & Plan - Problems (Diagnosis) (1) Pneumonia due to COVID-19 virus Onset Date: ~08/30/20 Current Visit: Yes Status: Acute (2) DM2 (diabetes mellitus, type 2) Current Visit: Yes Status: Acute Qualifiers: Diabetes mellitus long line teamster insulin use: without long line teamster use (3) HTN (hypertension) Current Visit: Yes Status: Acute Qualifiers: Hypertension type: essential hypertension Qualified Code(s): I10 - Essential (primary) hypertension - Plan Continue with plan of care as mentioned below 1. Continue with IV steroids 2. Continue with BiPAP support 3. Repeat chest x-ray 4. Continue with inflammatory markers 5. Pulmonary consultation appreciated 6. Continue with nebs as needed 7. GI and DVT prophylaxis Discharge Plan: Home Plan to discharge in: Greater than 2 days - Advance Directives Does patient have a Living Will: No Does patient have a Durable POA for Healthcare: No - Code Status/Comfort Care Code Status: Full Code Critical Care: No Time Spent Managing PTS Care (In Minutes): 35
[2020-09-23] MEDS ORDERED: METOPROLOL TARTRATE 5 MG/5 ML INJ IV STA (18:49)
[2020-09-23] MEDS: INSULIN GLARGINE 100 UNITS/ML SQ SCH (20:57)
[2020-09-23] MEDS: MELATONIN 5 MG TABLET PO SCH (20:58)
[2020-09-23] MEDS: ATORVASTATIN 20 MG TAB PO SCH (20:58)
[2020-09-24] MEDS: HYDROMORPHONE HCL 0.5 MG/0.5 ML INJ IV PRN ×2 (00:44→04:45)
[2020-09-24 05:18] LABS: Hematocrit 32.8 % (39.6-49.0); MPV 9.3 fL (7.6-11.3)
[2020-09-24 06:03] VITALS: BMI 26.9
[2020-09-24 06:11] LABS: Ferritin 2927.4 ng/mL (26-388); Magnesium 2.3 mg/dL (1.8-2.4); Phosphorus 3.5 mg/dL (2.5-4.9); Potassium 4.6 mmol/L (3.5-5.1)
[2020-09-24 07:14] LABS: Arterial Blood Carboxyhemoglob 1.3 % (0-1.5); Blood Gas Oxyhemoglobin 81.9 % (94-97); Blood O2 Saturation 83.7 % (92-98.5)
[2020-09-24] MEDS ORDERED: RSI MEDICATION KIT IV ONE (07:23)
[2020-09-24] MEDS ORDERED: NA CHLORIDE 0.9% 1,000 ML ONE (07:23)
[2020-09-24] MEDS: INSULIN -REGULAR HUMAN 50 UNIT/0.5 ML ML SQ SCH ×4 (07:30→20:46)
[2020-09-24] MEDS ORDERED: NOREPINEPHRINE 4 MG in D5W 250 ML IV PRN (07:41)
[2020-09-24] MEDS ORDERED: propofoL 1,000 MG/100 ML VIAL IV ONE (07:45)
[2020-09-24] MEDS ORDERED: NOREPINEPHRINE 4mg/D5W 250mL 0 MG/0 ML BAG IV ONE (07:57)
[2020-09-24] MEDS ORDERED: MIDAZOLAM HCL 2 MG/2 ML INJ IV PRN (08:00)
[2020-09-24] MEDS ORDERED: LORazepam 2 MG/ML VIAL IV PRN (08:00)
[2020-09-24] MEDS ORDERED: FENTANYL CITR 100 MCG/2 ML IV PRN (08:00)
[2020-09-24] MEDS ORDERED: FENTANYL/NS PCA 500 MCG/50 ML SYR IV PRN (08:00)
[2020-09-24] MEDS: METFORMIN HCL 500 MG TAB PO SCH ×2 (08:00→16:38)
[2020-09-24] MEDS ORDERED: HALOPERIDOL LACT 5 MG/ML INJ IV PRN (08:00)
[2020-09-24] MEDS ORDERED: propofoL 1,000 MG/100 ML VIAL IV PRN (08:00)
[2020-09-24] MEDS: GLUCERNA SHAKE 237 ML CAN PO SCH ×2 (08:15→20:10)
[2020-09-24] MEDS: TAMSULOSIN 0.4 MG SR CAP PO SCH (08:15)
[2020-09-24] MEDS: NYSTATIN 500,000 UNIT/5 ML UDC PO SCH ×4 (08:16→20:11)
[2020-09-24 08:17] LABS: Blood Morphology Comment NOTED (NOT SEEN); Platelet Estimate DECR; Platelets, Giant MOD
[2020-09-24 08:18] LABS: Basophilic Stippling 1+; Dohle Bodies PRESENT; Toxic Granulation 3+
[2020-09-24] MEDS: ASCORBIC ACID 500 MG TABLET PO SCH ×4 (08:20→20:46)
[2020-09-24] MEDS: FAMOTIDINE 20 MG TAB PO SCH ×2 (08:20→20:46)
[2020-09-24] MEDS: ZINC SULFATE 220 MG CAP PO SCH (08:21)
[2020-09-24] MEDS: FLUCONAZOLE 100 MG TAB PO SCH (08:21)
[2020-09-24] MEDS: VITAMIN D 5,000 UNIT CAP PO SCH (08:21)
[2020-09-24] MEDS: METHYLPREDNISOLONE 40 MG INJ IV SCH ×2 (08:21→20:45)
[2020-09-24] MEDS: SITAGLIPTIN PHOS 100 MG TAB PO SCH (08:21)
[2020-09-24] MEDS: APIXABAN 5 MG TABLET PO SCH ×2 (08:21→20:45)
--- NOTE | 2020-09-24 08:22 | P.PN ---
Subjective Date of Service: 09/24/20 Primary Care Provider: unknown Chief Complaint: Respiratory failure Patient's condition deteriorated today and had to be intubated currently he is hypotensive on Levophed agitated Review of Systems is unable to be obtained Physical Examination - Vital Signs Temperature: 97.2 F Blood Pressure: 81/61 Pulse: 117 Respirations: 13 Pulse Ox (%): 90 - Physical Exam General: Unresponsive Respiratory: Diminished, Crackles/rales Cardiovascular: Normal S1 S2, Edema Integumentary: Other (Pro cyanosis of the lower extremity) - Studies Medications List Reviewed: Yes Assessment & Plan - Problems (Diagnosis) (1) Pneumonia due to COVID-19 virus Onset Date: ~08/30/20 Current Visit: Yes Status: Acute Plan: Respiratory failure patient's condition worsened had to be intubated this morning hypotensive on vasopressors labs reviewed prognosis very poor will start patient on cefepime possible tube feeds tomorrow
[2020-09-24] MEDS ORDERED: CEFEPIME 1 GM/VIAL IV SCH (09:00)
--- NOTE | 2020-09-24 09:06 | RAD REPORT ---
EXAM DESCRIPTION: Shawna Single View09/24/2020 8:25 am CLINICAL HISTORY: Chest pain COMPARISON: September 21 FINDINGS: No significant change in the bilateral pulmonary opacities consistent with pneumonia. Hear t remains enlarged. PICC line place
--- NOTE | 2020-09-24 09:07 | RAD REPORT ---
EXAM DESCRIPTION: Shawna Single View09/24/2020 8:27 am CLINICAL HISTORY: Device placement endotracheal tube placement IMPRESSION: An endotracheal tube has been inserted with its tip well above the daryn. Nasogastric tube has been placed. The tip lies near the GE junction
[2020-09-24] MEDS ORDERED: CISATRACURIUM INJECTION 2 MG/ML (10 ML Vial) IV PRN (09:42)
[2020-09-24] MEDS ORDERED: FENTANYL CITR 100 MCG/2 ML IV ONE (09:42)
[2020-09-24] MEDS ORDERED: METHYLPREDNISOLONE 125 MG INJ IV ONE (09:43)
[2020-09-24 10:23] LABS: Arterial Blood Carboxyhemoglob 1.1 % (0-1.5); Blood O2 Saturation 76.8 % (92-98.5)
[2020-09-24] MEDS: NOREPINEPHRINE 8 MG in Dextrose 5%-Water 500 ML IV PRN ×3 (10:23→22:32)
[2020-09-24] MEDS: CEFEPIME/SWI 1gm 10 ML IV SCH ×2 (10:29→20:46)
[2020-09-24] MEDS ORDERED: SODIUM BICARB 50 MEQ/50ML VIAL IV ONE (11:00)
[2020-09-24 15:14] LABS: Blood O2 Saturation 84.5 % (92-98.5)
[2020-09-24 15:15] LABS: Arterial Blood Carboxyhemoglob 1.1 % (0-1.5); Blood Gas Oxyhemoglobin 82.6 % (94-97)
[2020-09-24] MEDS: MIRTAZAPINE 15 MG TAB PO SCH (20:12)
[2020-09-24] MEDS: ATORVASTATIN 20 MG TAB PO SCH (20:45)
[2020-09-24] MEDS: MELATONIN 5 MG TABLET PO SCH (20:45)
[2020-09-24] MEDS: INSULIN GLARGINE 100 UNITS/ML SQ SCH (20:47)
[2020-09-24 22:36] VITALS: TEMP 100.1
[2020-09-24 23:06] VITALS: O2SAT 91
[2020-09-24 23:20] VITALS: BP 89/55
[2020-09-25] MEDS ORDERED: EPINEPHrine 1 MG/10 ML SYR IV ONE (00:29)
--- NOTE | 2020-10-15 02:43 | P.DS ---
Discharge Date: 09/24/20 Primary Care Provider: unknown Disposition: Discharge Condition: Reason for Admission: Respiratory failure Consultations: Pulmonary - Problems (1) Pneumonia due to COVID-19 virus Onset Date: ~08/30/20 Status: Acute (2) DM2 (diabetes mellitus, type 2) Status: Acute Qualifiers: Diabetes mellitus continuous churn buttermaker insulin use: without snf use (3) HTN (hypertension) Status: Acute Qualifiers: Hypertension type: essential hypertension Qualified Code(s): I10 - Essential (primary) hypertension Brief History of Present Illness: Patient is a 75-year-old gentleman who came into the hospital with COVID-19 Pneumonia. Patient was on high flow oxygen. However, patient was really hypoxic so we alternated that with a BiPAP on admission. Patient was admitted to the intensive care unit. Hospital Course: Patient never recovered much. Patient clinical condition continues to deteriorate. Patient did have a small pneumomediastinum as well. Patient's prognosis remains poor. Patient continued to decline and on September 24, 2020 at 2305. Family was at bedside at the time of the passing. Laboratory Data at Discharge: WBC Cancelled 09/25/20 05:00 Hgb Cancelled 09/25/20 05:00 Hct Cancelled 09/25/20 05:00 Plt Count Cancelled 09/25/20 05:00 PT 12.5 SECONDS (9.5-12.5) 09/01/20 05:18 INR 1.06 09/01/20 05:18 Sodium Cancelled 09/25/20 05:00 Potassium Cancelled 09/25/20 05:00 BUN Cancelled 09/25/20 05:00 Creatinine Cancelled 09/25/20 05:00 Glucose Cancelled 09/25/20 05:00 Phosphorus 3.5 mg/dL (2.5-4.9) 09/24/20 05:00 Magnesium Cancelled 09/25/20 05:00 Total Bilirubin 0.8 mg/dL (0.2-1.0) 09/18/20 04:53 AST 43 U/L (15-37) H 09/18/20 04:53 ALT 58 U/L (12-78) 09/18/20 04:53 Alkaline Phosphatase 90 U/L (45-117) 09/18/20 04:53 Triglycerides 64 mg/dL (<150) 08/30/20 04:50 Cholesterol 100 mg/dL (<200) 08/30/20 04:50 HDL Cholesterol 39 mg/dL (40-60) L 08/30/20 04:50 Cholesterol/HDL Ratio 2.56 08/30/20 04:50 Home Medications: Amlodipine [Norvasc*] 1 tab PO DAILY 08/30/20 Atorvastatin Calcium [Lipitor*] 1 tab PO BEDTIME 08/30/20 Carvedilol [Coreg] 12.5 mg PO BID 08/30/20 Lisinopril [Zestril] 5 mg PO DAILY 08/30/20 Tamsulosin HCl 1 tab PO DAILY 08/30/20 Followup: Chema Jaramillo FNP [Primary Care Provider] - Time spent managing pt's care (in minutes): 35
== END 2020-09-24 23:20 | disposition expired | DRG 871 ==
LOC: ER 17:41 → ERHOLD 21:26 → 3RD-ICU 08-30 21:54 → UNDODISIN 09-25 00:30
PROVIDERS: ADMIT Internal Medicine Sleep Medicine; ATTEND Hospitalist
PROC: 5A09557 Assistance with Respiratory Ventilation, Greater than 96 Consecutive Hours, Continuous Positive Airway Pressure (ICD-10-PCS; 2020-08-30)
PROC: XW033E5 Introduction of Remdesivir Anti-infective into Peripheral Vein, Percutaneous Approach, New Technology Group 5 (ICD-10-PCS; 2020-09-02)
PROC: 5A1935Z Respiratory Ventilation, Less than 24 Consecutive Hours (ICD-10-PCS; principal; 2020-09-24)
PROC: 0BH17EZ Insertion of Endotracheal Airway into Trachea, Via Natural or Artificial Opening (ICD-10-PCS; 2020-09-24)
DX: A41.89 Other specified sepsis (principal); U07.1 COVID-19; J12.82 Pneumonia due to coronavirus disease 2019; J96.01 Acute respiratory failure with hypoxia; T79.7XXA Traumatic subcutaneous emphysema, initial encounter; E78.5 Hyperlipidemia, unspecified; I10 Essential (primary) hypertension; E11.649 Type 2 diabetes mellitus with hypoglycemia without coma; F41.9 Anxiety disorder, unspecified; E86.0 Dehydration; D64.9 Anemia, unspecified; E11.65 Type 2 diabetes mellitus with hyperglycemia; N40.0 Benign prostatic hyperplasia without lower urinary tract symptoms; Z87.891 Personal history of nicotine dependence; Z79.899 Other long term (current) drug therapy; Z78.1 Physical restraint status
CPT/HCPCS: 0240U; 36415; 71045; 74176; 80048; 80053; 80061; 80076; 82607; 82728; 82746; 82805; 82947; 83036; 83540; 83605; 83615; 83735; 83880; 84100; 84145; 84466; 84484; 85025; 85027; 85379; 85610; 86140; 87040; 93005; 94002; 94003; 94010; 94660; 94760; 96374; 97110; 97161; 97530; 99285; J0171; J0692; J1100; J1170; J1650; J1815; J1940; J2370; J2704; J2920; J2930; J3010; J7030; J7050; J7060